=== PATIENT | female | born 1940 | race Caucasian/White ===

== ENCOUNTER 2018-07-09 13:39 | Emergency (ER) | payer OTHER ==
[2018-07-09] MEDS ORDERED: Zanaflex 4 MG PO STA (14:06)
[2018-07-09] MEDS ORDERED: TORAdol 30 mg Injection IM ONE (14:06)
[2018-07-09 14:12] VITALS: BP 164/84; O2SAT 98
[2018-07-09] MEDS ORDERED: TORAdol 30 mg Injection ONE (14:15)
--- NOTE | 2018-07-09 15:16 | ERPHSYRPT ---
- History of Present Illness Source: patient Exam Limitations: no limitations Patient Subjective Stated Complaint: woke up with sharp pain that goes down buttocks. hx sciatica. denies injury Triage Nursing Assessment: alert and with c/o pain to right buttocks and back.. no known injury. states pain when lifting leg and placing foot to walk. no increase in pain with standing. + pedal puses bilaterally. Physician History: Pt complains of R sided lower back pain. Pt states, the pain started in the AM , when she woke up, and is not radiating down her leg, but is stable in the R lower back. Pt states, hard for her to ambulate, and cross her legs. Pt took Ibuprofen in the AM, but that did not give her any relief. Timing/Duration: today Method of Injury: other (woke up with the pain) Quality: sharp, stabbing Back Pain Location: lumbar spine, paraspinous muscles Severity of Pain-Max: moderate Severity of Pain-Current: mild Modifying Factors: Improves With: pain medication, rest Associated Symptoms: denies symptoms Allergies/Adverse Reactions: No Known Drug Allergies Allergy (Verified 07/09/18 14:13) Immunizations Up to Date: Yes - Review of Systems Constitutional: No Fever, No Chills Respiratory: No Cough, No Dyspnea Cardiac: No Chest Pain, No Edema, No Syncope Abdominal/Gastrointestinal: No Abdominal Pain, No Nausea, No Vomiting, No Diarrhea Genitourinary Symptoms: No Dysuria Musculoskeletal: Back Pain Skin: No Rash Neurological: No Dizziness, No Focal Weakness, No Sensory Changes - Past Medical History Pertinent Past Medical History: Yes Cardiac History: Hypertension - Past Surgical History Past Surgical History: No - Social History Smoking Status: Never smoker Exposure to second hand smoke: No Drug Use: none Patient Lives Alone: No - Female History Hx Now: No - Nursing Vital Signs Nursing Vital Signs: Initial Vital Signs Temperature 98 F 07/09/18 13:39 Pulse Rate 76 07/09/18 13:39 Respiratory Rate 20 07/09/18 13:39 Blood Pressure 164/84 07/09/18 13:39 O2 Sat by Pulse Oximetry 98 07/09/18 13:39 Pain Scale Pain Intensity 10 - Physical Exam General Appearance: no apparent distress, alert Eye Exam: PERRL/EOMI, eyes nml inspection Neck Exam: normal inspection, non-tender, supple, full range of motion, No meningismus, No midline tenderness Respiratory Exam: normal breath sounds, lungs clear, No respiratory distress Cardiovascular Exam: regular rate/rhythm, normal heart sounds Gastrointestinal Exam: soft, No tenderness, No mass Back Exam: decreased range of motion, muscle spasm, point tenderness (Right SI joint tenderness) Extremity Exam: normal inspection, normal range of motion, No calf tenderness, No pedal edema Neurologic Exam: alert, oriented x 3, cooperative, sports official II-XII nml as tested, normal mood/affect, nml station & gait, sensation nml, No motor deficits SpO2: 98 - Course Nursing assessment & vital signs reviewed: Yes Ordered Tests: Medication Summary Discontinued Medications Generic Name Dose Route Start Last Admin Trade Name Freq PRN Reason Stop Dose Admin Ketorolac Tromethamine 60 mg 07/09/18 14:06 07/09/18 14:29 Toradol 30 Mg Injection IM 07/09/18 14:07 60 mg STAT ONE Administration Ketorolac Tromethamine Confirm 07/09/18 14:15 Toradol 30 Mg Injection Administered 07/09/18 14:16 Dose 60 mg .ROUTE .STK-MED ONE Tizanidine HCl 8 mg 07/09/18 14:06 07/09/18 14:30 Zanaflex 4 Mg PO 07/09/18 14:07 8 mg ONCE STA Administration - Progress Progress Note: 07/09/18 15:16 Pt was checked and examined. Toradol 60mg IM and Zanaflex 8mg PO were given. - Departure Departure Disposition: Home Clinical Impression: Piriformis syndrome Condition: Stable Critical Care Time: No Referrals: SRI TORRE [Primary Care Provider] - Additional Instructions: Take meds on a PRN basis. Make sure to drink plenty of fluids. Do not drive while taking the muscle relaxant. Heating pad will help. F/U with PCP this week. Prescriptions: Ibuprofen 800 mg PO Q8H PRN PRN #20 tablet PRN Reason: Muscle Spasms Tizanidine HCl 4 mg [Zanaflex 4 MG] 4 mg PO Q8H PRN PRN 5 Days #15 tablet PRN Reason: Muscle Spasms
[2018-07-09 15:39] VITALS: PULSE 82
== END 2018-07-09 15:38 | disposition home or self-care (01) ==
LOC: ED 13:39
DX: G57.00 Lesion of sciatic nerve, unspecified lower limb (principal); R42 Dizziness and giddiness
CPT/HCPCS: 96372; 99284; J1885; A9270-GY

== ENCOUNTER 2018-07-10 12:29 | Inpatient (IN) | payer OTHER ==
[2018-07-10 13:03] LABS: BASOPHIL % 0.4 % (0.0-0.4); Basophil (Absolute #) 0.04 (0-0.4); Eosinophil % 5.4 % (0.00-5.0); Granulocyte Absolute (ANC) 6.05 (1.4-6.9); Hematocrit 39.2 % (35-47); Hemoglobin 12.5 gm/dl (12.0-16.0); Lymphocytes % 23.6 % (24.0-44.0); Mean Cell Volume 90.5 fl (78-100); Mean Corpuscular Hemoglobin 28.9 pg (26-32); Mean Corpuscular Hgb Concent. 31.9 g/dl (32-36); Mean Platelet Volume 11.1 fl (6-9.5); Monocyte (Absolute #) 0.52 (0.0-1.3); Monocytes % 5.6 % (0.0-12.0); Platelet Count 214 K/mm3 (150-450); Red Blood Count 4.33 M/mm3 (4.1-5.4); Red Cell Distribution Width 14.1 % (11.5-14.0); White Blood Count 9.3 K/mm3 (4.0-10.5)
[2018-07-10 13:18] LABS: ALBUMIN 3.4 g/dL (3.5-5.0); ALKALINE PHOSPHATASE 126 U/L (38-126); ANION GAP 10.2 MEQ/L (5-15); BLOOD UREA NITROGEN 16 mg/dL (7-17); CHLORIDE 105 mmol/L (98-107); Calcium 8.9 mg/dL (8.4-10.2); Carbon Dioxide 26 mmol/L (22-30); Creatinine 1 0.65 mg/dL (0.52-1.04); Glucose 96 mg/dL (74-106); Potassium 3.9 mmol/L (3.5-5.1); SGOT/AST 22 U/L (14-36); SGPT/ALT 15 U/L (0-35); SODIUM 137 mmol/L (137-145); Total Protein 6.9 g/dL (6.3-8.2)
[2018-07-10] MEDS ORDERED: MORPHINE SULFATE 2 MG INJ IV ONE (14:23)
[2018-07-10] MEDS ORDERED: MORPHINE SULFATE 2 MG INJ ONE (14:29)
--- NOTE | 2018-07-10 14:32 | XRAY ---
Indication: Right-sided back/hip pain. Multiple contiguous axial images obtained through the abdomen and pelvis using 80 cc Isovue 370 contrast only. Comparison: February 03, 2007. Lung bases again demonstrates minimal right base atelectasis/scarring. No infiltrate or effusion. Heart is not enlarged. Again previous gastric bypass surgery. Noncontrasted stomach and bowel loops appear nonobstructed. Normal appendix. There is again mild diffuse scattered colonic fecal debris throughout. Again cholecystectomy with interval hysterectomy. No free fluid/air. Again incidental hepatic/splenic calcified granulomas. Remaining liver, pancreas, spleen, adrenal glands, kidneys, ureters, and bladder appear unremarkable. Aorta is normal in course and caliber with minimal calcifications. No pathologic retroperitoneal lymphadenopathy. Osseous structures again demonstrates mild double curvature scoliosis and moderate/advanced multilevel thoracolumbar degenerative spondylosis including minimal grade 1 L3 spondylolisthesis. No ventral or inguinal hernias. Impression: 1. Again diffuse fecal stasis without obstruction and evidence for old granulomatous disease. 2. Stable scoliosis and multilevel degenerative spondylosis including grade 1 L4 spondylolisthesis. 3. Remaining CT abdomen/pelvis with contrast exam is negative. CT DI 23.60
[2018-07-10 14:54] LABS: Appearance CLEAR (CLEAR); Bilirubin NEGATIVE (NEGATIVE); Blood NEGATIVE Ery/ul (0-5); Epithelial Cells RARE /HPF (FEW); Glucose NEGATIVE (NEGATIVE); Ketones NEGATIVE (NEGATIVE); Leukocyte Esterase TRACE (NEGATIVE); Mucus SLIGHT /HPF (NEGATIVE); Nitrite NEGATIVE (NEGATIVE); Protein,Urine Dip NEGATIVE (Negative); Specific Gravity 1.044 (1.005-1.025); Urobilinogen 4 mg/dL (0-1); WBC 0-2 /HPF (0-5)
--- NOTE | 2018-07-10 15:49 | ERPHSYRPT ---
- History of Present Illness Source: patient Exam Limitations: no limitations Patient Subjective Stated Complaint: STATES HAS HAD RIGHT HIP PAIN SINCE TUESDAY. WAS SEEN YESTERDAY IN ER AND GIVEN TORADOL AND XANAFLEX. STATES TOOK PAIN MEDS AT HOME AND IS NOT GETTING ANY BETTER. IS SUPPOSED TO SEE FAMILY MD TOMORROW. Triage Nursing Assessment: TO ROOM PER W/C. SKIN W/D, COLOR NORMAL. RESP EASY. PATIENT UNABLE TO BEAR WEIGHT ON RIGHT LEG DUE TO PAIN. PATIENT ASSISTED TO COT. RIGHT LEG WARM, NORMAL COLOR AND GOOD PEDAL PULSE. Physician History: Pt is a 78 y/o female that came to the ER yesterday for SI joint pain on the R. She had XR that did not show any pathology and was given Toradol and Zanaflex. Pt then wanted to be d/c to home, and left. Today pt came to the ER with complains of severe pain in same hip area, and she is not able to ambulate , or put any weight on the R LE. Pt denies injury or fall. Timing/Duration: day(s) Occured at: home Context: unknown Quality: aching, stabbing Hip Pain Location: hip (R) Severity of Pain-Max: severe Severity of Pain-Current: moderate Modifying Factors: Improves With: pain medication Symptoms prior to fall: none Associated Symptoms: denies symptoms Allergies/Adverse Reactions: meperidine [From Demerol] Allergy (Verified 07/10/18 13:11) Home Medications: Acetaminophen [Tylenol 8 Hour] 650 mg PO QID 07/10/18 [History] Albuterol Sulfate [Proair Hfa] 8.5 gm IH DAILY 07/10/18 [History] Aspirin [[place] Aspirin EC] 81 mg PO DAILY 07/10/18 [History] Budesonide/Formoterol Fumarate [Symbicort 160-4.5 Mcg Inhaler] 2 ea IH DAILY [History] Calcium Carbonate/Vitamin D3 [Calcium 500 mg-Vit D3 600 Unit] 1 each PO UD 07/10 [History] Duloxetine HCl 60 mg PO DAILY 07/10/18 [History] Furosemide 40 mg [Lasix 40 MG] 40 mg PO DAILY 07/10/18 [History] Glucosamine/Chondro [place] A/C/Mn [Glucosamine-Chondroitin Cap] 2 ea PO DAILY [History] Losartan Potassium 25 mg PO DAILY 07/10/18 [History] Magnesium Oxide 400 mg PO BID 07/10/18 [History] Omeprazole 20 mg PO DAILY 07/10/18 [History] Potassium Chloride [Klor-Con M20] 40 meq PO DAILY 07/10/18 [History] Ropinirole HCl 1 mg PO DAILY 07/10/18 [History] Hx Tetanus, Diphtheria Vaccination/Date Given: Yes Hx Influenza Vaccination/Date Given: Yes Hx Pneumococcal Vaccination/Date Given: Yes - Review of Systems Constitutional: No Fever, No Chills Eyes: No Symptoms Ears, Nose, & Throat: No Symptoms Respiratory: No Cough, No Dyspnea Cardiac: No Chest Pain, No Edema, No Syncope Abdominal/Gastrointestinal: No Abdominal Pain, No Nausea, No Vomiting, No Diarrhea Genitourinary Symptoms: No Dysuria Musculoskeletal: Arthralgias (SI joint on the R), Back Pain Neurological: No Dizziness, No Focal Weakness, No Sensory Changes - Past Medical History Pertinent Past Medical History: Yes Cardiac History: Hypertension - Past Surgical History Past Surgical History: No - Social History Smoking Status: Never smoker Exposure to second hand smoke: No Drug Use: none Patient Lives Alone: No - Female History Hx Now: No - Nursing Vital Signs Nursing Vital Signs: Initial Vital Signs Temperature 97.7 F 07/10/18 12:33 Pulse Rate 73 07/10/18 12:33 Respiratory Rate 16 07/10/18 12:33 Blood Pressure 164/70 07/10/18 12:33 O2 Sat by Pulse Oximetry 98 07/10/18 12:33 Pain Scale Pain Intensity [Right Hip] 5 Pain Intensity 5 - Physical Exam General Appearance: no apparent distress, alert Eye Exam: PERRL/EOMI Ears, Nose, Throat Exam: normal ENT inspection, moist mucous membranes Neck Exam: normal inspection, non-tender, supple Respiratory Exam: normal breath sounds, lungs clear, No chest tenderness, No respiratory distress Cardiovascular Exam: regular rate/rhythm, No edema Gastrointestinal Exam: soft, No tenderness, No distention, No guarding Back Exam: other (pain on the lower back on R) Extremity Exam: limited range of motion, other (Pain with movement on R LE.) Neurologic Exam: alert, oriented x 3, cooperative, pole lift operator II-XII nml as tested, sensation nml, No motor deficits SpO2: 100 - Course Nursing assessment & vital signs reviewed: Yes - CT Exams Abdomen/Pelvis CT Interpretation: Tele-radiologist Report (Stable scoliosis, multilevel degenerative spondylosis including grade 1 L4 spondolithesis.) Ordered Tests: Active Orders 24 hr Category Date Time Status ABDOMEN AND PELVIS W CONTRAST [CT] Stat Exams 07/10/18 12:46 Completed CBC W DIFF Stat Lab 07/10/18 13:02 Completed CMP Stat Lab 07/10/18 13:02 Completed Urinalysis with Microscopy Stat Lab 07/10/18 14:38 Completed Medication Summary Discontinued Medications Generic Name Dose Route Start Last Admin Trade Name Freq PRN Reason Stop Dose Admin Morphine Sulfate 2 mg 07/10/18 14:23 07/10/18 14:36 Morphine Sulfate 2 Mg Inj IV 07/10/18 14:24 2 mg STAT ONE Administration Morphine Sulfate Confirm 07/10/18 14:29 Morphine Sulfate 2 Mg Inj Administered 07/10/18 14:30 Dose 2 mg .ROUTE .[place]-MED ONE Lab/Rad Data: Laboratory Result Diagrams 07/10/18 13:02 07/10/18 13:02 Laboratory Results 07/10/18 07/10/18 07/10/18 Range/Units 14:38 13:02 13:02 WBC 9.3 (4.0-10.5) K/mm3 RBC 4.33 (4.1-5.4) M/mm3 Hgb 12.5 (12.0-16.0) gm/dl Hct 39.2 (35-47) % MCV 90.5 (78-100) fl MCH 28.9 (26-32) pg MCHC 31.9 L (32-36) g/dl RDW 14.1 H (11.5-14.0) % Plt Count 214 (150-450) K/mm3 MPV 11.1 H (6-9.5) fl Gran % 65.0 (36.0-66.0) % Eos # (Auto) 0.50 (0-0.5) Absolute Lymphs (auto) 2.20 (1.0-4.6) Absolute Monos (auto) 0.52 (0.0-1.3) Lymphocytes % 23.6 L (24.0-44.0) % Monocytes % 5.6 (0.0-12.0) % Eosinophils % 5.4 H (0.00-5.0) % Basophils % 0.4 (0.0-0.4) % Absolute Granulocytes 6.05 (1.4-6.9) Basophils # 0.04 (0-0.4) Sodium 137 (137-145) mmol/L Potassium 3.9 (3.5-5.1) mmol/L Chloride 105 (98-107) mmol/L Carbon Dioxide 26 (22-30) mmol/L Anion Gap 10.2 (5-15) MEQ/L BUN 16 (7-17) mg/dL Creatinine 0.65 (0.52-1.04) mg/dL Estimated GFR > 60.0 ML/MIN Glucose 96 (74-106) mg/dL Calcium 8.9 (8.4-10.2) mg/dL Total Bilirubin 0.80 (0.2-1.3) mg/dL AST 22 (14-36) U/L ALT 15 (0-35) U/L Alkaline Phosphatase 126 (38-126) U/L Serum Total Protein 6.9 (6.3-8.2) g/dL Albumin 3.4 L (3.5-5.0) g/dL Urine Color YELLOW (YELLOW) Urine Appearance CLEAR (CLEAR) Urine pH 6.0 (5-6) Ur Specific [place] 1.044 (1.005-1.025) Urine Protein NEGATIVE (Negative) Urine Ketones NEGATIVE (NEGATIVE) Urine Blood NEGATIVE (0-5) Jeff/ul Urine Nitrite NEGATIVE (NEGATIVE) Urine Bilirubin NEGATIVE (NEGATIVE) Urine Urobilinogen 4 (0-1) mg/dL Ur Leukocyte Esterase TRACE (NEGATIVE) Urine WBC (Auto) 0-2 (0-5) /HPF Urine RBC (Auto) 3-5 (0-2) /HPF U Epithel Cells (Auto) RARE (FEW) /HPF Urine Bacteria (Auto) NONE (NEGATIVE) /HPF Urine Mucus (Auto) SLIGHT (NEGATIVE) /HPF Urine Glucose NEGATIVE (NEGATIVE) mg/dL - Progress Progress: unchanged Progress Note: Pt was seen and examined. Lab work is negative. CT shows degenerative sponylosis and scoliosis. Per family's request Dr Perkins was contacted, and pt was accepted to observation for pain control. 07/10/18 15:49 Will see patient in: hospital (observation) - Departure Departure Disposition: Observation Clinical Impression: Lower back pain Condition: Stable Critical Care Time: No Referrals: SRI TORRE [Primary Care Provider] - Additional Instructions: Sabiha will be placed in observation. Dr Perkins is accepting.
[2018-07-10] MEDS ORDERED: MORPHINE SULFATE 2 MG INJ IV PRN (15:51)
--- NOTE | 2018-07-10 17:32 | PCM.HP ---
History of Present Illness - Chief Complaint Chief Complaint: lower back pain. History of Present Illness: is a 78 year old female pt of mine from [facility] with pmhx of anemia, neuropathy, and overweight, with probable COPD, who came to ER c/o back pain. Pain is in the R lower back (approx L4-L5) and radiates down the R leg; down L leg at times. Pain started 4-5 d ago with no trauma noted. She came to ER yesterday and was given tizanidine 4mg and ibuprofen 800mg - she took the tizanidine x1 without relief. Then today she was still having pain, not able to get out of bed and walk by herself at home due to pain, and came back to the ER. She was given 2mg morphine IV without relief. Dr. Kuhn was ready to d /c the pt to home but her mobility is still very limited to pain. Pt states right now lying in bed pain is 0/10, but when she gets up it is 10/ 10. She has trouble moving the R leg to walk. Denies paresthesias. No urinary retention and no loss of bowel control. - Review of Systems Genitourinary Symptoms: No Urinary Retention Musculoskeletal: Back Pain Psychological: No Anxiety, No Depression, No Suicidal Ideations Medications & Allergies Home Medications: Home Medication List Ibuprofen 800 mg PO Q8H PRN PRN #20 tablet 07/09/18 [Rx Confirmed 07/10/18] Tizanidine HCl 4 mg [Zanaflex 4 MG] 4 mg PO Q8H PRN PRN 5 Days #15 tablet [Rx Confirmed 07/10/18] Acetaminophen [Tylenol 8 Hour] 650 mg PO QID 07/10/18 [History Confirmed ] Albuterol Sulfate [Proair Hfa] 8.5 gm IH DAILY 07/10/18 [History Confirmed 07/10] Aspirin [[place] Aspirin EC] 81 mg PO DAILY 07/10/18 [History Confirmed 07/10] Budesonide/Formoterol Fumarate [Symbicort 160-4.5 Mcg Inhaler] 2 ea IH DAILY [History Confirmed 07/10/18] Calcium Carbonate/Vitamin D3 [Calcium 500 mg-Vit D3 600 Unit] 1 each PO UD 07/10 [History Confirmed 07/10/18] Duloxetine HCl 60 mg PO DAILY 07/10/18 [History Confirmed 07/10/18] Furosemide 40 mg [Lasix 40 MG] 40 mg PO DAILY 07/10/18 [History Confirmed 07/10/18] Glucosamine/Chondro [place] A/C/Mn [Glucosamine-Chondroitin Cap] 2 ea PO DAILY [History Confirmed 07/10/18] Losartan Potassium 25 mg PO DAILY 07/10/18 [History Confirmed 07/10/18] Magnesium Oxide 400 mg PO BID 07/10/18 [History Confirmed 07/10/18] Omeprazole 20 mg PO DAILY 07/10/18 [History Confirmed 07/10/18] Potassium Chloride [Klor-Con M20] 40 meq PO DAILY 07/10/18 [History Confirmed ] Ropinirole HCl 1 mg PO DAILY 07/10/18 [History Confirmed 07/10/18] Allergies/Adverse Reactions: Allergies Allergy/AdvReac Type Severity Reaction Status Date / Time meperidine [From Demerol] Allergy Verified 07/10/18 13:11 - Past Medical History Past Medical History: Yes Neurological History: No Pertinent History ENT History: Cataracts, Glaucoma Cardiac History: Hypertension Respiratory History: No Pertinent History Endocrine Medical History: No Pertinent History Musculoskelatal History: Arthritis, Other GI Medical History: No Pertinent History History: No Pertinent History Pyscho-Social History: No Pertinent History Reproductive Disorders: No Pertinent History - Female History Are you now?: No - Past Surgical History Past Surgical History: Yes Neuro Surgical History: No Pertinent History Cardiac History: Angioplasty GI Surgical History: Other Genitourinary Surgical Hx: No Pertinent History Musculskeletal Surgical Hx: No Pertinent History Female Surgical History: No Pertinent History Other Surgical History: "tummuy tuck". - Social History Smoking Status: Former smoker Exposure to second hand smoke: Yes Alcohol: None Drug Use: none - Physical Exam Vital Signs: Vital Signs - 24 hr Temp Pulse Resp BP Pulse Ox 07/10/18 16:49 98.3 F 77 20 125/67 100 07/10/18 15:51 100 07/10/18 14:41 73 16 143/61 100 07/10/18 12:33 97.7 F 73 16 164/70 98 General Appearance: no apparent distress, alert Neurologic Exam: oriented x 3, cooperative Eye Exam: eyes nml inspection Ears, Nose, Throat Exam: moist mucous membranes Neck Exam: normal inspection Respiratory Exam: normal breath sounds, lungs clear, No crackles/rales, No rhonchi, No wheezing Cardiovascular Exam: regular rate/rhythm, normal heart sounds, No murmur Gastrointestinal/Abdomen Exam: soft, normal bowel sounds, No tenderness, No distention, No mass, No guarding, No rebound Back Exam: normal inspection, other (TTP R lumbar paraspinal muscles approx L4- L5. no lesions, no erythema/crepitus), No rash Skin Exam: normal color, warm, dry, No rash Results - Labs Lab/Micro Results: Lab Results-Last 24 Hours 07/10/18 07/10/18 07/10/18 Range/Units 13:02 13:02 14:38 WBC 9.3 (4.0-10.5) K/mm3 RBC 4.33 (4.1-5.4) M/mm3 Hgb 12.5 (12.0-16.0) gm/dl Hct 39.2 (35-47) % MCV 90.5 (78-100) fl MCH 28.9 (26-32) pg MCHC 31.9 L (32-36) g/dl RDW 14.1 H (11.5-14.0) % Plt Count 214 (150-450) K/mm3 MPV 11.1 H (6-9.5) fl Gran % 65.0 (36.0-66.0) % Eos # (Auto) 0.50 (0-0.5) Absolute Lymphs (auto) 2.20 (1.0-4.6) Absolute Monos (auto) 0.52 (0.0-1.3) Lymphocytes % 23.6 L (24.0-44.0) % Monocytes % 5.6 (0.0-12.0) % Eosinophils % 5.4 H (0.00-5.0) % Basophils % 0.4 (0.0-0.4) % Absolute Granulocytes 6.05 (1.4-6.9) Basophils # 0.04 (0-0.4) Sodium 137 (137-145) mmol/L Potassium 3.9 (3.5-5.1) mmol/L Chloride 105 (98-107) mmol/L Carbon Dioxide 26 (22-30) mmol/L Anion Gap 10.2 (5-15) MEQ/L BUN 16 (7-17) mg/dL Creatinine 0.65 (0.52-1.04) mg/dL Estimated GFR > 60.0 ML/MIN Glucose 96 (74-106) mg/dL Calcium 8.9 (8.4-10.2) mg/dL Total Bilirubin 0.80 (0.2-1.3) mg/dL AST 22 (14-36) U/L ALT 15 (0-35) U/L Alkaline Phosphatase 126 (38-126) U/L Serum Total Protein 6.9 (6.3-8.2) g/dL Albumin 3.4 L (3.5-5.0) g/dL Urine Color YELLOW (YELLOW) Urine Appearance CLEAR (CLEAR) Urine pH 6.0 (5-6) Ur Specific [place] 1.044 (1.005-1.025) Urine Protein NEGATIVE (Negative) Urine Ketones NEGATIVE (NEGATIVE) Urine Blood NEGATIVE (0-5) Jeff/ul Urine Nitrite NEGATIVE (NEGATIVE) Urine Bilirubin NEGATIVE (NEGATIVE) Urine Urobilinogen 4 (0-1) mg/dL Ur Leukocyte Esterase TRACE (NEGATIVE) Urine WBC (Auto) 0-2 (0-5) /HPF Urine RBC (Auto) 3-5 (0-2) /HPF U Epithel Cells (Auto) RARE (FEW) /HPF Urine Bacteria (Auto) NONE (NEGATIVE) /HPF Urine Mucus (Auto) SLIGHT (NEGATIVE) /HPF Urine Glucose NEGATIVE (NEGATIVE) mg/dL - Radiology Impressions Radiology Exams & Impressions: Radiology Procedures Category Date Time Status ABDOMEN AND PELVIS W CONTRAST [CT] Stat Exams 07/10/18 12:46 Completed Assessment/Plan (1) Lower back pain Current Visit: Yes Status: Acute Qualifiers: Chronicity: acute Back pain laterality: right Sciatica presence: with sciatica Sciatica laterality: sciatica of right side Qualified Code(s): M54.41 - Lumbago with sciatica, right side Assessment & Plan: Will order MRI. Try morphine and percocet for pain control. Scheduled baclofen and mobic. PT consulted. Code(s): M54.5 - LOW BACK PAIN
[2018-07-10] MEDS: ENOXAPARIN SODIUM SQ SCH (17:37)
[2018-07-10] MEDS: PERCOCET TABLET 5/325MG PO PRN ×2 (18:18→22:56)
[2018-07-10] MEDS ORDERED: ECOTRIN 81 MG PO SCH ×2 (22:00)
[2018-07-10] MEDS ORDERED: REQUIP 2MG TAB PO SCH (22:00)
[2018-07-10] MEDS ORDERED: Requip 0.5 MG ONE (22:29)
[2018-07-10] MEDS: MAG-OX 400 PO SCH (22:56)
[2018-07-10] MEDS: Mobic 7.5 MG PO SCH (22:57)
[2018-07-10] MEDS: LIORESAL 10 MG PO SCH (22:57)
[2018-07-11] MEDS: PERCOCET TABLET 5/325MG PO PRN ×3 (04:14→22:04)
[2018-07-11 06:12] LABS: BASOPHIL % 0.4 % (0.0-0.4); Basophil (Absolute #) 0.03 (0-0.4); Eosinophil (Absolute #) 0.49 (0-0.5); Granulocytes % 59.7 % (36.0-66.0); Hematocrit 37.5 % (35-47); Hemoglobin 11.7 gm/dl (12.0-16.0); Lymphocyte (Absolute #) 1.84 (1.0-4.6); Lymphocytes % 26.2 % (24.0-44.0); Mean Cell Volume 90.4 fl (78-100); Mean Corpuscular Hgb Concent. 31.2 g/dl (32-36); Mean Platelet Volume 10.9 fl (6-9.5); Monocyte (Absolute #) 0.47 (0.0-1.3); Monocytes % 6.7 % (0.0-12.0); Platelet Count 203 K/mm3 (150-450); Red Blood Count 4.15 M/mm3 (4.1-5.4); Red Cell Distribution Width 14.1 % (11.5-14.0)
[2018-07-11 06:18] LABS: ANION GAP 11.5 MEQ/L (5-15); BLOOD UREA NITROGEN 13 mg/dL (7-17); CHLORIDE 106 mmol/L (98-107); Calcium 8.8 mg/dL (8.4-10.2); Carbon Dioxide 24 mmol/L (22-30); Creatinine 1 0.59 mg/dL (0.52-1.04); Glucose 96 mg/dL (74-106); Potassium 3.8 mmol/L (3.5-5.1); SODIUM 138 mmol/L (137-145)
[2018-07-11 06:28] LABS: Mean Corpuscular Hemoglobin 28.1 pg (26-32)
[2018-07-11] MEDS ORDERED: Zanaflex 4 MG PO PRN (07:38)
[2018-07-11] MEDS ORDERED: CALCIUM CARBONATE PO SCH (07:45)
[2018-07-11] MEDS ORDERED: VITAMIN D3 PO SCH (07:45)
[2018-07-11] MEDS ORDERED: [UNRECOGNIZED DRUG - OTHER] PO SCH (07:45)
[2018-07-11] MEDS ORDERED: Ventolin Hfa MDI IH SCH (07:45)
[2018-07-11] MEDS ORDERED: PROVENTIL COMMON CANISTER IH PRN (07:52)
--- NOTE | 2018-07-11 08:34 | PCM.NOTE ---
Date and Time: 07/11/18829 Subjective Assessment: Pt slept well last nigth. Still c/o R lower back pain. Eileen po. - Review of Systems Constitutional: No Fever Respiratory: No Cough Objective Exam General Appearance: no apparent distress, alert Neurologic Exam: oriented x 3, cooperative Skin Exam: normal color, warm, dry, No rash Respiratory Exam: normal breath sounds, lungs clear, No crackles/rales, No rhonchi, No wheezing Cardiovascular Exam: regular rate/rhythm, normal heart sounds, No murmur Gastrointestinal/Abdomen Exam: soft, normal bowel sounds, No tenderness Extremity Exam: normal inspection, No pedal edema, No swelling Back Exam: normal inspection, No rash OBJECTIVE DATA Vital Signs: Vital Signs - 24 hr Temp Pulse Resp BP Pulse Ox 07/11/18 07:43 98 F 76 20 140/66 92 L 07/11/18 04:32 97.7 F 82 20 147/65 91 L 07/11/18 01:01 98.3 F 79 20 141/64 92 L 07/10/18 20:00 98.1 F 78 20 117/56 94 L 07/10/18 16:49 98.3 F 77 20 125/67 100 07/10/18 15:51 100 07/10/18 14:41 73 16 143/61 100 07/10/18 12:33 97.7 F 73 16 164/70 98 Pain Assessment - Last Documented Pain Intensity [Right Hip] 5 Pain Intensity 0 Pain Scale Used 0-10 Pain Scale Intake and Output: Intake & Output 07/08/18 07/09/18 07/10/18 07/11/18 11:59 11:59 11:59 11:59 Intake Total 770 Output Total 1300 Balance -530 Weight 117.5 kg Lab Results: Lab Results-Last 24 Hours 07/10/18 07/10/18 07/10/18 Range/Units 13:02 13:02 14:38 WBC 9.3 (4.0-10.5) K/mm3 RBC 4.33 (4.1-5.4) M/mm3 Hgb 12.5 (12.0-16.0) gm/dl Hct 39.2 (35-47) % MCV 90.5 (78-100) fl MCH 28.9 (26-32) pg MCHC 31.9 L (32-36) g/dl RDW 14.1 H (11.5-14.0) % Plt Count 214 (150-450) K/mm3 MPV 11.1 H (6-9.5) fl Gran % 65.0 (36.0-66.0) % Eos # (Auto) 0.50 (0-0.5) Absolute Lymphs (auto) 2.20 (1.0-4.6) Absolute Monos (auto) 0.52 (0.0-1.3) Lymphocytes % 23.6 L (24.0-44.0) % Monocytes % 5.6 (0.0-12.0) % Eosinophils % 5.4 H (0.00-5.0) % Basophils % 0.4 (0.0-0.4) % Absolute Granulocytes 6.05 (1.4-6.9) Basophils # 0.04 (0-0.4) Sodium 137 (137-145) mmol/L Potassium 3.9 (3.5-5.1) mmol/L Chloride 105 (98-107) mmol/L Carbon Dioxide 26 (22-30) mmol/L Anion Gap 10.2 (5-15) MEQ/L BUN 16 (7-17) mg/dL Creatinine 0.65 (0.52-1.04) mg/dL Estimated GFR > 60.0 ML/MIN Glucose 96 (74-106) mg/dL Calcium 8.9 (8.4-10.2) mg/dL Total Bilirubin 0.80 (0.2-1.3) mg/dL AST 22 (14-36) U/L ALT 15 (0-35) U/L Alkaline Phosphatase 126 (38-126) U/L Serum Total Protein 6.9 (6.3-8.2) g/dL Albumin 3.4 L (3.5-5.0) g/dL Urine Color YELLOW (YELLOW) Urine Appearance CLEAR (CLEAR) Urine pH 6.0 (5-6) Ur Specific Eagle 1.044 (1.005-1.025) Urine Protein NEGATIVE (Negative) Urine Ketones NEGATIVE (NEGATIVE) Urine Blood NEGATIVE (0-5) Jeff/ul Urine Nitrite NEGATIVE (NEGATIVE) Urine Bilirubin NEGATIVE (NEGATIVE) Urine Urobilinogen 4 (0-1) mg/dL Ur Leukocyte Esterase TRACE (NEGATIVE) Urine WBC (Auto) 0-2 (0-5) /HPF Urine RBC (Auto) 3-5 (0-2) /HPF U Epithel Cells (Auto) RARE (FEW) /HPF Urine Bacteria (Auto) NONE (NEGATIVE) /HPF Urine Mucus (Auto) SLIGHT (NEGATIVE) /HPF Urine Glucose NEGATIVE (NEGATIVE) mg/dL 07/11/18 07/11/18 Range/Units 05:30 05:30 WBC 7.0 (4.0-10.5) K/mm3 RBC 4.15 (4.1-5.4) M/mm3 Hgb 11.7 L (12.0-16.0) gm/dl Hct 37.5 (35-47) % MCV 90.4 (78-100) fl MCH 28.1 (26-32) pg MCHC 31.2 L (32-36) g/dl RDW 14.1 H (11.5-14.0) % Plt Count 203 (150-450) K/mm3 MPV 10.9 H (6-9.5) fl Gran % 59.7 (36.0-66.0) % Eos # (Auto) 0.49 (0-0.5) Absolute Lymphs (auto) 1.84 (1.0-4.6) Absolute Monos (auto) 0.47 (0.0-1.3) Lymphocytes % 26.2 (24.0-44.0) % Monocytes % 6.7 (0.0-12.0) % Eosinophils % 7.0 H (0.00-5.0) % Basophils % 0.4 (0.0-0.4) % Absolute Granulocytes 4.20 (1.4-6.9) Basophils # 0.03 (0-0.4) Sodium 138 (137-145) mmol/L Potassium 3.8 (3.5-5.1) mmol/L Chloride 106 (98-107) mmol/L Carbon Dioxide 24 (22-30) mmol/L Anion Gap 11.5 (5-15) MEQ/L BUN 13 (7-17) mg/dL Creatinine 0.59 (0.52-1.04) mg/dL Estimated GFR > 60.0 ML/MIN Glucose 96 (74-106) mg/dL Calcium 8.8 (8.4-10.2) mg/dL Total Bilirubin (0.2-1.3) mg/dL AST (14-36) U/L ALT (0-35) U/L Alkaline Phosphatase (38-126) U/L Serum Total Protein (6.3-8.2) g/dL Albumin (3.5-5.0) g/dL Urine Color (YELLOW) Urine Appearance (CLEAR) Urine pH (5-6) Ur Specific Eagle (1.005-1.025) Urine Protein (Negative) Urine Ketones (NEGATIVE) Urine Blood (0-5) Jeff/ul Urine Nitrite (NEGATIVE) Urine Bilirubin (NEGATIVE) Urine Urobilinogen (0-1) mg/dL Ur Leukocyte Esterase (NEGATIVE) Urine WBC (Auto) (0-5) /HPF Urine RBC (Auto) (0-2) /HPF U Epithel Cells (Auto) (FEW) /HPF Urine Bacteria (Auto) (NEGATIVE) /HPF Urine Mucus (Auto) (NEGATIVE) /HPF Urine Glucose (NEGATIVE) mg/dL Radiology Exams: Radiology Procedures Category Date Time Status ABDOMEN AND PELVIS W CONTRAST [CT] Stat Exams 07/10/18 12:46 Completed MRI L-SPINE WITHOUT CONTRAST [MRI] Routine Exams 07/11/18 10:00 Ordered Assessment/Plan (1) Lower back pain Current Visit: Yes Status: Acute Qualifiers: Chronicity: acute Back pain laterality: right Sciatica presence: with sciatica Sciatica laterality: sciatica of right side Qualified Code(s): M54.41 - Lumbago with sciatica, right side Assessment & Plan: await MRI today. Will need pain meds for MRI. If doing well with PT and po meds may be able to d/c home today. Code(s): M54.5 - LOW BACK PAIN
[2018-07-11] MEDS: Advair Hfa 230/21 Mcg COMMON CANISTER IH SCH ×2 (08:37→20:23)
[2018-07-11] MEDS: Lasix 40 MG PO SCH (08:58)
[2018-07-11] MEDS: Calcium 500MG W/Vit D Tablet PO SCH (08:58)
[2018-07-11] MEDS: LIORESAL 10 MG PO SCH ×3 (08:58→22:03)
[2018-07-11] MEDS: Protonix 40MG Tablet PO SCH (08:58)
[2018-07-11] MEDS: Cozaar 50 MG PO SCH (08:59)
[2018-07-11] MEDS: Klor Con 10 MEQ PO SCH ×2 (09:00→09:06)
[2018-07-11] MEDS: Mobic 7.5 MG PO SCH ×2 (09:00→22:04)
[2018-07-11] MEDS: MAG-OX 400 PO SCH ×2 (09:00→22:04)
[2018-07-11] MEDS: Cymbalta 30 MG Capsule PO SCH (09:00)
[2018-07-11] MEDS: ENOXAPARIN SODIUM SQ SCH (09:01)
[2018-07-11] MEDS: MORPHINE SULFATE 10 MG/ML IV PRN ×3 (09:47→19:57)
[2018-07-11] MEDS ORDERED: NON-FORMULARY ITEM (Omeprazole [Omeprazole] 20 MG) PO SCH (10:00)
[2018-07-11] MEDS ORDERED: NON-FORMULARY ITEM (Budesonide/Formoterol Fumarate [Symbicort 160-4.5 Mcg Inhaler] 2 PUFFS IH SCH (10:00)
[2018-07-11] MEDS ORDERED: POTASSIUM CHLORIDE 40 MEQ PO SCH (10:00)
--- NOTE | 2018-07-11 16:57 | XRAY ---
Indication: Low back and right hip pain. Right leg dragging with walking. No known injury. Sagittal and axial MRI lumbar spine performed without contrast using T1 and T2 weighted sequences. Comparison: None CT abdomen/pelvis 1 day earlier documents 5 lumbar vertebral segments. Sagittal MRI images demonstrates mild double curvature scoliosis and 4 mm L3 anterolisthesis on L4 Multilevel advanced degenerative disc desiccation signal with disc space narrowing greatest at the L2-L4 levels. Small bilateral S2 perineural cysts, largest on the left measuring 1 cm. No acute fracture, suspicious bony lesions, or abnormal bone marrow signal. Conus medullaris terminates at the L1 level. Axial images at the T12-L1 level demonstrates mild annular disc bulge minimally effacing the thecal sac and producing bilateral foraminal narrowing. Additional mild bilateral degenerative facet and ligamentum flavum hypertrophy further narrows the spinal canal. No disc herniation or canal stenosis. At the L1-L2 level, there is bilateral foraminal stenosis due to combination of broad-based disc bulge and moderate bilateral degenerative facet and ligamentum flavum hypertrophy. Also moderate focal central disc protrusion effaces the thecal sac. AP thecal sac diameter is 6-7 mm. At the L2-L3 level, there is bilateral foraminal narrowing, right greater than left due to broad-based disc bulge and moderate bilateral degenerative facet hypertrophy. No focal disc herniation or canal stenosis. At the L3-L4 level, there is spinal canal stenosis, right foraminal stenosis, and left foraminal narrowing due to combination of grade 1 anterolisthesis, broad-based disc bulge, and moderate/advanced bilateral degenerative facet with ligament flavum hypertrophy. Mean AP thecal sac diameter is 5-6 mm. Slight impingement of the exiting right L3 nerve root. At the L4-L5 level, there is spinal canal stenosis, left foraminal stenosis, and right foraminal narrowing due to combination of broad-based disc bulge and advanced bilateral degenerative facet/ligament flavum hypertrophy. Mean AP thecal sac diameter is 8 mm. Impingement of the exiting left L4 nerve root. At the L5-S1 level, there is bilateral foraminal stenosis with bilateral L5 nerve root impingement due to broad-based disc bulge and moderate bilateral degenerative facet hypertrophy. No disc herniation or canal stenosis. Impression: 1. Multilevel degenerative disc disease detail level by level. Greatest extent at L3-L4 level where there is spinal canal stenosis and foraminal narrowing/stenosis due to disc bulge, grade 1 anterolisthesis, and degenerative facet/ligamentum flavum hypertrophy. 2. L1-L2 central disc protrusion with subsequent canal stenosis. 3. Incidental double curvature scoliosis and bilateral S2 perineural cysts.
[2018-07-11] MEDS ORDERED: Requip 0.5 MG PO SCH (22:00)
[2018-07-11] MEDS: ECOTRIN 81 MG PO SCH (22:03)
[2018-07-11] MEDS: REQUIP 2MG TAB PO SCH (22:03)
[2018-07-12] MEDS: MORPHINE SULFATE 10 MG/ML IV PRN ×2 (00:01→04:10)
--- NOTE | 2018-07-12 08:32 | PCM.DS ---
Discharge Summary Date of Admission: 07/10/18 16:19 Admitting Physician: SRI TORRE Primary Care Provider: SRI TORRE Allergies Allergies meperidine [From Demerol] Allergy (Verified 07/10/18 13:11) Hospital Summary - Hospital Course Hospital Course: Pt is 78 yo female pt of mine from [facility] with obesity who came in complaining of several days of sudden onset R lower back pain without trauma. She came to the ER x 2 and was admitted after the second visit. Her pain has been poorly controlled; was 10/10 on admission and unable to walk by herself. She has been up with a walker here, but still alternating morphine IV and percocet 5mg po, with pain 8/10. CT spine without acute findings. MRI spine showed several levels with spinal stenosis and foraminal stenosis due to disc bulge. She has denies paresthesias in LE, urinary retention, or loss of bowel control throughout her stay. We did discuss that these, as well as paralysis, are red flags and must be reported immediately to a physician. I will contact neurosurgery today to see when they can see the pt. My goal is to stop the morphine and see if her pain is controlled on 25mcg fentanyl patch with percocet 10/325 for breakthrough pain prn. If she is controlled, may be able to d/c home later today. If any concerns about respiratory depression, will keep her through the night and continue to work on pain control. - Vitals & Intake/Output Vital Signs: Vital Signs Temperature 97.6 F 07/12/18 07:36 Pulse Rate 75 07/12/18 07:36 Respiratory Rate 20 07/12/18 07:36 Blood Pressure 150/67 07/12/18 07:36 O2 Sat by Pulse Oximetry 97 07/12/18 07:36 Intake & Output: Intake & Output 07/09/18 07/10/18 07/11/18 07/12/18 11:59 11:59 11:59 11:59 Intake Total 890 1440 Output Total 1300 1300 Balance -410 140 Weight 117.5 kg - Lab Result Diagrams: 07/11/18 05:30 07/11/18 05:30 - Radiology Exams Ordered Rad Exams-Entire Visit: Radiology Procedures Category Date Time Status ABDOMEN AND PELVIS W CONTRAST [CT] Stat Exams 07/10/18 12:46 Completed MRI L-SPINE WITHOUT CONTRAST [MRI] Routine Exams 07/11/18 10:00 Completed - Procedures and Test Procedures and Tests throughout Hospitalization: Therapy Orders & Screens 07/10/18 17:37 PT Eval & Treat (MD Order) ROUTINE Reason for Eval:: R low back pain, intractable Diagnosis: lower back pain. 07/11/18 09:07 Respiratory MDI HS Comment: Diagnosis: lower back pain. 07/11/18 09:19 Respiratory Therapy Assessment DAILY Comment: Diagnosis: lower back pain. Discharge Exam General Appearance: moderate distress (NAD at rest; wtih some distress when turning to her side), alert, obese Neurologic Exam: oriented x 3, cooperative Skin Exam: normal color, warm, dry, No rash Final Diagnosis/Problem List - Final Discharge Diagnosis/Problem (1) Spinal stenosis Current Visit: Yes Status: Acute Assessment & Plan: Will discuss with neurosurgery and see when they can see pt. Changing morphine to fentanyl patch and po percocet. May be able to d/c to home if ok with neurosurgery and if pain is better controlled and pt can ambulate. If concerns about respiratory depression or pain control, will need to keep the pt another day. Code(s): M48.00 - SPINAL STENOSIS, SITE UNSPECIFIED - Discharge Disposition: Home, Self-Care Condition: Good Prescriptions: No Action Ibuprofen 800 mg PO Q8H PRN PRN #20 tablet PRN Reason: Muscle Spasms Tizanidine HCl 4 mg [Zanaflex 4 MG] 4 mg PO Q8H PRN PRN 5 Days #15 tablet PRN Reason: Muscle Spasms Furosemide 40 mg [Lasix 40 MG] 40 mg PO DAILY Ropinirole HCl 2 tab PO HS Potassium Chloride [Klor-Con M20] 40 meq PO DAILY Omeprazole 20 mg PO DAILY Magnesium Oxide 400 mg PO BID Losartan Potassium 12.5 mg PO DAILY Glucosamine/Chondro Worley A/C/Mn [Glucosamine-Chondroitin Cap] 2 ea PO DAILY Duloxetine HCl 60 mg PO DAILY Calcium Carbonate/Vitamin D3 [Calcium 500 mg-Vit D3 600 Unit] 1 each PO UD Budesonide/Formoterol Fumarate [Symbicort 160-4.5 Mcg Inhaler] 2 ea IH DAILY Aspirin [Tower Aspirin EC] 81 mg PO HS Albuterol Sulfate [Proair Hfa] 8.5 gm IH QID PRN Acetaminophen [Tylenol 8 Hour] 650 mg PO QID Budesonide/Formoterol Fumarate [Symbicort 160-4.5 Mcg Inhaler] 2 puffs IH BID Instructions: Low Back Pain (DC) Follow up with: SRI TORRE [Primary Care Provider] - 1 Week
[2018-07-12] MEDS ORDERED: Duragesic 25MCG Patch TD SCH (09:00)
[2018-07-12] MEDS: PATIENT OWN MEDICATION IH SCH ×2 (10:35→20:20)
[2018-07-12] MEDS: Cymbalta 30 MG Capsule PO SCH (12:03)
[2018-07-12] MEDS: MAG-OX 400 PO SCH ×2 (12:03→21:24)
[2018-07-12] MEDS: Calcium 500MG W/Vit D Tablet PO SCH (12:03)
[2018-07-12] MEDS: Mobic 7.5 MG PO SCH ×2 (12:04→21:24)
[2018-07-12] MEDS: Cozaar 50 MG PO SCH (12:04)
[2018-07-12] MEDS: LIORESAL 10 MG PO SCH ×3 (12:04→21:24)
[2018-07-12] MEDS: Protonix 40MG Tablet PO SCH (12:04)
[2018-07-12] MEDS: Klor Con 10 MEQ PO SCH (12:04)
[2018-07-12] MEDS: Lasix 40 MG PO SCH (12:05)
[2018-07-12] MEDS: OXYCODONE-ACETAMINOPHEN 10-325 PO PRN ×2 (12:05→16:22)
[2018-07-12] MEDS: ENOXAPARIN SODIUM SQ SCH (12:09)
[2018-07-12] MEDS: REQUIP 2MG TAB PO SCH (21:24)
[2018-07-12] MEDS: ECOTRIN 81 MG PO SCH (21:24)
[2018-07-13] MEDS: OXYCODONE-ACETAMINOPHEN 10-325 PO PRN ×2 (06:13→12:57)
--- NOTE | 2018-07-13 08:29 | PCM.NOTE ---
Date and Time: 07/13/18826 Subjective Assessment: Last night she was very sleepy and disoriented; family requested that the fentanyl patch be discontinued and it was. She required oxygen overnight. This morning she is still sleepy; wakes to voice. She is oriented to place; however the month is "Tuesday" and the year is ".2001." She is denying any pain. - Review of Systems Constitutional: No Fever Respiratory: No Cough Objective Exam General Appearance: no apparent distress, other (somnolent but wakes to voice) Neurologic Exam: cooperative, disoriented (oriented to place) Skin Exam: normal color, warm, dry, No rash Ears, Nose, Throat Exam: moist mucous membranes Respiratory Exam: normal breath sounds, lungs clear, No crackles/rales, No rhonchi, No wheezing Cardiovascular Exam: regular rate/rhythm, normal heart sounds, No murmur Gastrointestinal/Abdomen Exam: soft, normal bowel sounds, No tenderness, No distention, No mass, No guarding, No rebound Extremity Exam: normal inspection, No pedal edema, No swelling Back Exam: normal inspection, No rash OBJECTIVE DATA Vital Signs: Vital Signs - 24 hr Temp Pulse Resp BP Pulse Ox 07/13/18 08:00 97.5 F 72 20 132/60 98 07/13/18 04:20 97.8 F 70 15 129/61 97 07/13/18 00:11 98.5 F 69 14 125/58 97 07/12/18 21:06 74 18 97 07/12/18 20:00 98.1 F 76 15 127/62 95 07/12/18 16:34 98.5 F 81 20 118/57 94 L 07/12/18 12:20 98 F 07/12/18 10:35 74 16 95 Oxygen-Last 24 hours O2 Percentage 3 Liters = 32% O2 Percentage 3 Liters = 32% O2 Percentage 3 Liters = 32% Pain Assessment - Last Documented Pain Intensity [Right Hip] 5 Pain Intensity 0 Pain Scale Used 0-10 Pain Scale Intake and Output: Intake & Output 07/10/18 07/11/18 07/12/18 07/13/18 11:59 11:59 11:59 11:59 Intake Total 890 1800 560 Output Total 1300 1300 950 Balance -410 500 -390 Weight 117.5 kg Radiology Exams: Radiology Procedures Category Date Time Status MRI L-SPINE WITHOUT CONTRAST [MRI] Routine Exams 07/11/18 10:00 Completed Assessment/Plan (1) Spinal stenosis Current Visit: Yes Status: Acute Assessment & Plan: Will re-asses pain meds/pain control when she wakes up more - may not be ready to d/c if pain not controlled. Referring her to neurosurgeon of her family's choice - Dr. Anthony Thakur in [place]. Will speak with him today. Code(s): M48.00 - SPINAL STENOSIS, SITE UNSPECIFIED (2) Altered mental status Current Visit: Yes Status: Acute Qualifiers: Altered mental status type: disorientation Qualified Code(s): R41.0 - Disorientation, unspecified Assessment & Plan: Most likely related to pain meds. Code(s): R41.82 - ALTERED MENTAL STATUS, UNSPECIFIED
[2018-07-13] MEDS: PATIENT OWN MEDICATION IH SCH ×2 (09:06→20:24)
[2018-07-13] MEDS: Cozaar 50 MG PO SCH (10:14)
[2018-07-13] MEDS: Lasix 40 MG PO SCH (10:14)
[2018-07-13] MEDS: Klor Con 10 MEQ PO SCH (10:14)
[2018-07-13] MEDS: LIORESAL 10 MG PO SCH ×3 (10:14→21:30)
[2018-07-13] MEDS: MAG-OX 400 PO SCH ×2 (10:14→21:30)
[2018-07-13] MEDS: Protonix 40MG Tablet PO SCH (10:15)
[2018-07-13] MEDS: Cymbalta 30 MG Capsule PO SCH (10:15)
[2018-07-13] MEDS: Mobic 7.5 MG PO SCH ×2 (10:16→21:31)
[2018-07-13] MEDS: ENOXAPARIN SODIUM SQ SCH (10:19)
[2018-07-13] MEDS: Calcium 500MG W/Vit D Tablet PO SCH (10:19)
[2018-07-13 18:28] LABS: BASOPHIL % 0.2 % (0.0-0.4); Basophil (Absolute #) 0.02 (0-0.4); Eosinophil % 3.2 % (0.00-5.0); Eosinophil (Absolute #) 0.27 (0-0.5); Granulocyte Absolute (ANC) 6.03 (1.4-6.9); Granulocytes % 72.4 % (36.0-66.0); Hematocrit 38.9 % (35-47); Hemoglobin 12.3 gm/dl (12.0-16.0); Lymphocyte (Absolute #) 1.52 (1.0-4.6); Lymphocytes % 18.2 % (24.0-44.0); Mean Cell Volume 91.3 fl (78-100); Mean Corpuscular Hemoglobin 28.9 pg (26-32); Mean Corpuscular Hgb Concent. 31.6 g/dl (32-36); Mean Platelet Volume 10.8 fl (6-9.5); Platelet Count 220 K/mm3 (150-450); Red Blood Count 4.26 M/mm3 (4.1-5.4); Red Cell Distribution Width 14.2 % (11.5-14.0); White Blood Count 8.3 K/mm3 (4.0-10.5)
[2018-07-13 18:40] LABS: ALBUMIN 3.6 g/dL (3.5-5.0); ALKALINE PHOSPHATASE 115 U/L (38-126); ANION GAP 10.6 MEQ/L (5-15); BLOOD UREA NITROGEN 15 mg/dL (7-17); CHLORIDE 104 mmol/L (98-107); Calcium 9.2 mg/dL (8.4-10.2); Carbon Dioxide 28 mmol/L (22-30); Creatinine 1 0.71 mg/dL (0.52-1.04); Glucose 93 mg/dL (74-106); Potassium 4.1 mmol/L (3.5-5.1); SGOT/AST 23 U/L (14-36); SGPT/ALT 17 U/L (0-35); SODIUM 139 mmol/L (137-145)
[2018-07-13 18:49] LABS: A-aADO2 33; ABG HEMOGLOBIN 12.3; ABG POTASSIUM 4.3 (3.5-5.1); ARTERIAL BLD GAS O2 SATURATION 97.1 % (95-100); ARTERIAL BLOOD GAS FIO2 21 %; ARTERIAL BLOOD GAS PCO2 40 mmHg (35-45); ARTERIAL BLOOD GAS PO2 67 mmHg (75-100); ARTERIAL BLOOD GAS pH 7.43 (7.35-7.45); CARBOXYHEMOGLOBIN 2.1 % THgb (0.0-6.9); HCO3- 26.5 (22-28); Lactic Acid 1.5 (0.4-2.0); Methhemoglobin 1.2 % (1.4-1.5); paO2 pAO1 0.67
[2018-07-13 18:50] LABS: ABG SITE LEFT RADIAL; ALLEN TEST OK? YES
[2018-07-13] MEDS ORDERED: Narcan 0.4 MG/ML IV ONE (21:04)
[2018-07-13] MEDS: REQUIP 2MG TAB PO SCH (21:30)
[2018-07-13] MEDS: ECOTRIN 81 MG PO SCH (21:30)
[2018-07-14] MEDS: PATIENT OWN MEDICATION IH SCH ×2 (08:39→19:34)
--- NOTE | 2018-07-14 08:39 | PCM.NOTE ---
Date and Time: 07/14/18833 Subjective Assessment: After receiving narcan last night she did wake up more, was still disoriented, was restless. Earlier this morning she was disoriented for the nurse. For me she woke up with turning on the light; she is oriented to person and place but not time. She is conversant this morning. Does complain of back pain but can't tell me on a scale of1-10 how much it hurts. - Review of Systems Constitutional: No Fever Musculoskeletal: Back Pain Objective Exam General Appearance: no apparent distress, alert, obese Neurologic Exam: cooperative, disoriented, other (dorsiflexion and plantar flexion 5/5. hip flexors 4/5 bilat. unable to elicit patellar reflexes (due to habitus and hx total knee replacements bilat).) Skin Exam: normal color, warm, dry, No rash Respiratory Exam: normal breath sounds, lungs clear, No crackles/rales, No rhonchi, No wheezing Cardiovascular Exam: regular rate/rhythm, normal heart sounds, No murmur Extremity Exam: swelling (trace pretibial edema bilat) OBJECTIVE DATA Vital Signs: Vital Signs - 24 hr Temp Pulse Resp BP Pulse Ox 07/14/18 07:28 98.2 F 86 22 128/80 98 07/14/18 04:25 98.2 F 82 16 141/63 98 07/14/18 00:00 98.3 F 83 20 125/59 96 07/13/18 20:25 96 07/13/18 20:20 98.0 F 78 16 129/60 95 07/13/18 15:58 97.5 F 96 H 20 113/58 94 L 07/13/18 15:56 97.8 F 77 18 120/57 98 07/13/18 12:00 97 F 76 18 126/61 99 07/13/18 09:07 94 L Oxygen-Last 24 hours O2 Percentage 3 Liters = 32% O2 Percentage 3 Liters = 32% Oxygen Flowrate (L/min)-RT 3 Pain Assessment - Last Documented Pain Intensity [Right Hip] 5 Pain Intensity 10 Pain Scale Used 0-10 Pain Scale Intake and Output: Intake & Output 07/11/18 07/12/18 07/13/18 07/14/18 11:59 11:59 11:59 11:59 Intake Total 890 1800 680 380 Output Total 1300 1300 950 400 Balance -410 500 -270 -20 Weight 117.5 kg Lab Results: Lab Results-Last 24 Hours 07/13/18 07/13/18 07/13/18 Range/Units 18:27 18:27 18:43 WBC 8.3 (4.0-10.5) K/mm3 RBC 4.26 (4.1-5.4) M/mm3 Hgb 12.3 (12.0-16.0) gm/dl Hct 38.9 (35-47) % MCV 91.3 (78-100) fl MCH 28.9 (26-32) pg MCHC 31.6 L (32-36) g/dl RDW 14.2 H (11.5-14.0) % Plt Count 220 (150-450) K/mm3 MPV 10.8 H (6-9.5) fl Gran % 72.4 H (36.0-66.0) % Eos # (Auto) 0.27 (0-0.5) Absolute Lymphs (auto) 1.52 (1.0-4.6) Absolute Monos (auto) 0.50 (0.0-1.3) Lymphocytes % 18.2 L (24.0-44.0) % Monocytes % 6.0 (0.0-12.0) % Eosinophils % 3.2 (0.00-5.0) % Basophils % 0.2 (0.0-0.4) % Absolute Granulocytes 6.03 (1.4-6.9) Basophils # 0.02 (0-0.4) Puncture Site LEFT RADIAL pCO2 40 (35-45) mmHg pO2 67 L (75-100) mmHg Base Excess 2.0 (-2.0-2.0) O2 Saturation 94.0 (94-100) g/dF ABG pH 7.43 (7.35-7.45) ABG HCO3 26.5 (22-28) ABG O2 Sat (Measured) 97.1 (95-100) % Santiago Test YES A-a Gradient 33 a/A Ratio 0.67 Hemoglobin 12.3 Carboxyhemoglobin 2.1 (0.0-6.9) % THgb Methemoglobin 1.2 L (1.4-1.5) % Temperature 37.0 C POC O2 Flow Rate 21 % Sodium 139 (137-145) mmol/L Potassium 4.1 4.3 (3.5-5.1) mmol/L Chloride 104 (98-107) mmol/L Carbon Dioxide 28 (22-30) mmol/L Anion Gap 10.6 (5-15) MEQ/L BUN 15 (7-17) mg/dL Creatinine 0.71 (0.52-1.04) mg/dL Estimated GFR > 60.0 ML/MIN Glucose 93 (74-106) mg/dL Lactic Acid 1.5 (0.4-2.0) Calcium 9.2 (8.4-10.2) mg/dL Total Bilirubin 0.60 (0.2-1.3) mg/dL AST 23 (14-36) U/L ALT 17 (0-35) U/L Alkaline Phosphatase 115 (38-126) U/L Serum Total Protein 7.0 (6.3-8.2) g/dL Albumin 3.6 (3.5-5.0) g/dL Radiology Exams: Radiology Procedures Category Date Time Status HEAD WITHOUT CONTRAST [CT] Stat Exams 07/13/18 22:32 Taken Assessment/Plan (1) Spinal stenosis Current Visit: Yes Status: Acute Qualifiers: Spinal region: lumbar Neurogenic claudication status: without neurogenic claudication Qualified Code(s): M48.061 - Spinal stenosis, lumbar region without neurogenic claudication Assessment & Plan: Still having quite a bit of pain. I have stopped the opiates and will try lidoderm patch and toradol today and discuss with Dr. Ashton if he is available. Code(s): M48.00 - SPINAL STENOSIS, SITE UNSPECIFIED (2) Altered mental status Current Visit: Yes Status: Acute Qualifiers: Altered mental status type: disorientation Qualified Code(s): R41.0 - Disorientation, unspecified Assessment & Plan: I think due to opiate reaction; CT head was normal. Labs were fine aside from some poor oxygenation I think just due to respiratory depression. She is more awake this morning. Code(s): R41.82 - ALTERED MENTAL STATUS, UNSPECIFIED
--- NOTE | 2018-07-14 08:52 | XRAY ---
Indication: Confusion. Multiple contiguous axial images obtained through the head without contrast. Comparison: None Age-related global atrophy and mild periventricular degenerative micro-ischemia bilaterally. No acute intracranial hemorrhage, abnormal extra-axial fluid collection, or mass effect. Fourth ventricle is midline without hydrocephalus. Bony calvarium intact. Moderate mucosal thickening of the visualized right maxillary sinus. Remaining visualized paranasal sinuses and mastoid air cells are clear. Impression: Right maxillary sinus disease. Otherwise nonacute senile brain. Comment: Preliminary interpretation was made by [facility]. No discrepancy. CT DI 60.11
[2018-07-14] MEDS: TORAdol 30 mg Injection IV PRN ×3 (09:08→22:14)
[2018-07-14] MEDS: LIORESAL 10 MG PO SCH ×3 (09:17→22:17)
[2018-07-14] MEDS: MAG-OX 400 PO SCH ×2 (09:17→22:17)
[2018-07-14] MEDS: Lasix 40 MG PO SCH (09:17)
[2018-07-14] MEDS: Cozaar 50 MG PO SCH (09:17)
[2018-07-14] MEDS: Calcium 500MG W/Vit D Tablet PO SCH (09:17)
[2018-07-14] MEDS: Protonix 40MG Tablet PO SCH (09:17)
[2018-07-14] MEDS: Klor Con 10 MEQ PO SCH (09:17)
[2018-07-14] MEDS: Cymbalta 30 MG Capsule PO SCH (09:17)
[2018-07-14] MEDS: ENOXAPARIN SODIUM SQ SCH (09:20)
[2018-07-14] MEDS: Lidoderm Patch 5% TOP SCH (09:49)
[2018-07-14] MEDS ORDERED: Lidoderm Patch 5% TOP SCH (10:00)
[2018-07-14] MEDS: ECOTRIN 81 MG PO SCH (22:17)
[2018-07-14] MEDS: REQUIP 2MG TAB PO SCH (22:17)
[2018-07-15] MEDS: Naprosyn 500 MG PO SCH ×3 (02:57→21:06)
[2018-07-15] MEDS: PERCOCET TABLET 5/325MG PO PRN ×2 (03:33→18:29)
[2018-07-15] MEDS: PATIENT OWN MEDICATION IH SCH ×2 (07:12→20:09)
[2018-07-15] MEDS: Lidoderm Patch 5% TOP SCH (10:09)
[2018-07-15] MEDS: ENOXAPARIN SODIUM SQ SCH (10:09)
[2018-07-15] MEDS: Cymbalta 30 MG Capsule PO SCH (10:10)
[2018-07-15] MEDS: Protonix 40MG Tablet PO SCH (10:11)
[2018-07-15] MEDS: Calcium 500MG W/Vit D Tablet PO SCH (10:11)
[2018-07-15] MEDS: MAG-OX 400 PO SCH ×2 (10:12→21:06)
[2018-07-15] MEDS: LIORESAL 10 MG PO SCH ×2 (10:12→16:49)
[2018-07-15] MEDS: Cozaar 50 MG PO SCH (10:13)
[2018-07-15] MEDS: Klor Con 10 MEQ PO SCH (10:16)
[2018-07-15] MEDS: Lasix 40 MG PO SCH (10:16)
[2018-07-15 12:06] LABS: ALBUMIN 3.8 g/dL (3.5-5.0); ALKALINE PHOSPHATASE 136 U/L (38-126); ANION GAP 16.8 MEQ/L (5-15); BLOOD UREA NITROGEN 14 mg/dL (7-17); CHLORIDE 103 mmol/L (98-107); Calcium 9.5 mg/dL (8.4-10.2); Carbon Dioxide 21 mmol/L (22-30); Creatinine 1 0.59 mg/dL (0.52-1.04); Glucose 97 mg/dL (74-106); Potassium 4.2 mmol/L (3.5-5.1); SGOT/AST 33 U/L (14-36); SGPT/ALT 18 U/L (0-35); SODIUM 137 mmol/L (137-145); Total Protein 7.5 g/dL (6.3-8.2)
[2018-07-15 12:34] LABS: BASOPHIL % 0.3 % (0.0-0.4); Basophil (Absolute #) 0.03 (0-0.4); Granulocyte Absolute (ANC) 7.34 (1.4-6.9); Granulocytes % 75.2 % (36.0-66.0); Hemoglobin 13.9 gm/dl (12.0-16.0); Lymphocyte (Absolute #) 1.47 (1.0-4.6); Mean Cell Volume 88.8 fl (78-100); Mean Corpuscular Hemoglobin 28.7 pg (26-32); Mean Corpuscular Hgb Concent. 32.3 g/dl (32-36); Mean Platelet Volume 11.2 fl (6-9.5); Monocyte (Absolute #) 0.73 (0.0-1.3); Monocytes % 7.5 % (0.0-12.0); Platelet Count 244 K/mm3 (150-450); Red Blood Count 4.84 M/mm3 (4.1-5.4); Red Cell Distribution Width 14.1 % (11.5-14.0); White Blood Count 9.8 K/mm3 (4.0-10.5)
--- NOTE | 2018-07-15 13:44 | PCM.NOTE ---
Date and Time: 07/15/18 7007 Subjective Assessment: Patient continues to have pain today. She reports it is sharp and in her right hip area. Her nurses noted that she has pain often when she is turning over in bed but was able to sit up earlier today. They also note that she has pulled at least 2 IV's out and it is hard to get an IV started on her. She currently does not have IV access. Her sister is at the bedside and states that she hasn't eaten or drank much since Tuesday. She usually lives at home with her and has had some back problems but can usually ambulate and take care of herself. Her nurse reports a family member asked about an epidural for her pain from the nurse anesthesist and he was called but stated he does not do epidurals for pain and suggested she Dr. Ashton (outpatient pain management). She denies any history of falls and her sister at the bedside does not know of any falls. - Review of Systems Constitutional: Lethargy Respiratory: No Symptoms Cardiac: No Symptoms Abdominal/Gastrointestinal: No Abdominal Pain Musculoskeletal: Back Pain, Joint Pain, Other (right hip pain) Skin: No Symptoms Objective Exam General Appearance: other (She is often repeats things I have said. She knows she is in a hospital but can't tell me what year it is. She opens her eyes to commands and follows commands with encouragement. She moans in pain frequently.) Skin Exam: normal color Respiratory Exam: normal breath sounds, lungs clear, No crackles/rales, No rhonchi, No wheezing Cardiovascular Exam: regular rate/rhythm, normal heart sounds, No murmur, No friction rub, No gallop Gastrointestinal/Abdomen Exam: soft, normal bowel sounds, No tenderness, No distention, No mass, No guarding Extremity Exam: other (no pain in right hip with log roll; no point tenderness along right lateral hip, she can push down with both feet like she is pushing on the gas pedal and strength is 4/5 in both hands bilat) OBJECTIVE DATA Vital Signs: Vital Signs - 24 hr Temp Pulse Resp BP Pulse Ox 07/15/18 07:34 98.1 F 74 20 133/62 96 07/15/18 07:12 74 20 96 07/15/18 04:00 98.1 F 76 22 133/62 96 07/14/18 23:23 97.8 F 76 20 142/64 92 L 07/14/18 20:00 98.1 F 86 19 124/59 95 07/14/18 19:34 80 20 97 07/14/18 16:19 97.9 F 76 20 136/63 94 L Pain Assessment - Last Documented Pain Intensity [Right Hip] 5 Pain Intensity 10 Pain Scale Used 0-10 Pain Scale Intake and Output: Intake & Output 07/13/18 07/14/18 07/15/18 07/16/18 06:59 06:59 06:59 06:59 Intake Total 780 468 3919 180 Output Total 996 632 0883 Balance -30 100 -570 180 Lab Results: Lab Results-Last 24 Hours 07/15/18 07/15/18 Range/Units 11:49 11:49 WBC 9.8 (4.0-10.5) K/mm3 RBC 4.84 (4.1-5.4) M/mm3 Hgb 13.9 (12.0-16.0) gm/dl Hct 43.0 (35-47) % MCV 88.8 (78-100) fl MCH 28.7 (26-32) pg MCHC 32.3 (32-36) g/dl RDW 14.1 H (11.5-14.0) % Plt Count 244 (150-450) K/mm3 MPV 11.2 H (6-9.5) fl Gran % 75.2 H (36.0-66.0) % Eos # (Auto) 0.20 (0-0.5) Absolute Lymphs (auto) 1.47 (1.0-4.6) Absolute Monos (auto) 0.73 (0.0-1.3) Lymphocytes % 15.0 L (24.0-44.0) % Monocytes % 7.5 (0.0-12.0) % Eosinophils % 2.0 (0.00-5.0) % Basophils % 0.3 (0.0-0.4) % Absolute Granulocytes 7.34 H (1.4-6.9) Basophils # 0.03 (0-0.4) Sodium 137 (137-145) mmol/L Potassium 4.2 (3.5-5.1) mmol/L Chloride 103 (98-107) mmol/L Carbon Dioxide 21 L (22-30) mmol/L Anion Gap 16.8 H (5-15) MEQ/L BUN 14 (7-17) mg/dL Creatinine 0.59 (0.52-1.04) mg/dL Estimated GFR > 60.0 ML/MIN Glucose 97 (74-106) mg/dL Calcium 9.5 (8.4-10.2) mg/dL Total Bilirubin 0.70 (0.2-1.3) mg/dL AST 33 (14-36) U/L ALT 18 (0-35) U/L Alkaline Phosphatase 136 H (38-126) U/L Serum Total Protein 7.5 (6.3-8.2) g/dL Albumin 3.8 (3.5-5.0) g/dL Radiology Exams: Radiology Procedures Category Date Time Status HEAD WITHOUT CONTRAST [CT] Stat Exams 07/13/18 22:32 Completed HIP UNI (2V) INCL PEL IF DONE Urgent Exams 07/15/18 11:33 Taken Assessment/Plan (1) Fracture of iliac crest Current Visit: Yes Status: Acute Qualifiers: Encounter type: initial encounter Laterality: right Assessment & Plan: Right hip X-ray and pelvic X-ray was read by virtual radiologist as right iliac crest fracture (better seen on CT scan abdomen and pelvis dated 07/10/18) although this was not mentioned on this reading. Also right sacroiliac joint with healing acute fractures versus sclerotic chronic stress/insufficiency fractures (please see [facility] dictation for full report). Will continue with naproxen bid scheduled and percocet as needed for pain. She did not tolerate fentanyl patch and needed narcan after this. I am using a lower dose of percocet than what was prescribed earlier. She has been seen by PT. We do not have orthopedic coverage here that I am aware of at this time. Pelvic fractures are usually treated with pain control and early mobilization so will continue to try to do this for Ms. Lambert. Code(s): S32.309A - UNSP FRACTURE OF UNSP ILIUM, INIT ENCNTR FOR CLOSED FRACTURE (2) Delirium due to another medical condition Current Visit: Yes Status: Acute Assessment & Plan: Most likely due to pain and medications. Will continue to try to orient to day time and night time. Head CT was negative yesterday. Code(s): F05 - DELIRIUM DUE TO KNOWN PHYSIOLOGICAL CONDITION (3) Spinal stenosis Current Visit: Yes Status: Acute Qualifiers: Spinal region: lumbar Neurogenic claudication status: without neurogenic claudication Qualified Code(s): M48.061 - Spinal stenosis, lumbar region without neurogenic claudication Assessment & Plan: Shown on CT scan of Lumbar spine. Continue with current medications and trying to control pain although I think the more acute pain may be from the iliac crest fracture. Code(s): M48.00 - SPINAL STENOSIS, SITE UNSPECIFIED (4) Decrease in appetite Current Visit: Yes Status: Acute Assessment & Plan: Labs checked today to make sure electrolytes ok. Will ask for dietary consult. Will hold lasix and potassium chloride at this time. Code(s): R63.0 - ANOREXIA
[2018-07-15] MEDS: ECOTRIN 81 MG PO SCH (21:06)
[2018-07-15] MEDS: REQUIP 2MG TAB PO SCH (21:06)
--- NOTE | 2018-07-15 22:05 | XRAY ---
Indication: Pain. No known injury. Comparison: None AP pelvis and 2 views of the right hip demonstrates healing nondisplaced right iliac crest and right sacroiliac fractures. Both hips intact. Elsewhere osteopenia, lower lumbar degenerative spondylosis, and right gluteal calcified injection granulomas. Comment: Preliminary interpretation was made by [facility]. No discrepancy.
[2018-07-16] MEDS: PERCOCET TABLET 5/325MG PO PRN ×4 (01:18→20:37)
[2018-07-16] MEDS: PATIENT OWN MEDICATION IH SCH ×2 (07:12→19:50)
[2018-07-16] MEDS: ENOXAPARIN SODIUM SQ SCH (10:19)
[2018-07-16] MEDS: Lidoderm Patch 5% TOP SCH (10:20)
[2018-07-16] MEDS: Naprosyn 500 MG PO SCH ×2 (10:21→20:37)
[2018-07-16] MEDS: Cymbalta 30 MG Capsule PO SCH (10:21)
[2018-07-16] MEDS: MAG-OX 400 PO SCH ×2 (10:22→20:37)
[2018-07-16] MEDS: Calcium 500MG W/Vit D Tablet PO SCH (10:22)
[2018-07-16] MEDS: Cozaar 50 MG PO SCH (10:22)
[2018-07-16] MEDS: Protonix 40MG Tablet PO SCH (10:22)
--- NOTE | 2018-07-16 13:16 | PCM.NOTE ---
Date and Time: 07/16/18 1311 Subjective Assessment: Patient is much more alert and awake today. She doesn't remember being confused. Family is asking about appointment with specialist in [place] this and I explained that I did not know about this but Dr. Sandhya adair and she would be back tomorrow. Patient reports continued pain in right lower back /hip area that is worse when she lies on that side and if she tries to sit up. She received a percocet at about 1 AM and her mentation seems good today compared to yesterday. I recommended that she not take baclofen or fentanyl again. I also explained that right now her lasix is held but if she feels like her legs are starting to swell, that this can be started again. I also held her potassium. - Review of Systems Constitutional: No Symptoms Respiratory: No Symptoms Cardiac: No Symptoms Abdominal/Gastrointestinal: No Symptoms Genitourinary Symptoms: No Symptoms Musculoskeletal: Other (right hip and back pain) Objective Exam General Appearance: no apparent distress, alert Neurologic Exam: alert, other (says she is at hospital but thinks she is in [place] (pt reoriented); states the year is 2008 (pt reoriented). Knows her name. Smiling, talkative, not repeating herself today.) Skin Exam: normal color, warm, dry Respiratory Exam: normal breath sounds, lungs clear, No crackles/rales, No rhonchi, No wheezing Cardiovascular Exam: regular rate/rhythm, normal heart sounds, No murmur, No friction rub, No gallop Gastrointestinal/Abdomen Exam: soft, normal bowel sounds, No tenderness, No distention, No mass Extremity Exam: other (no c/c/e; subjective pain to movement on right side) OBJECTIVE DATA Vital Signs: Vital Signs - 24 hr Temp Pulse Resp BP Pulse Ox 07/16/18 11:32 98.4 F 99 H 18 127/64 96 07/16/18 07:18 98.1 F 73 18 114/71 95 07/16/18 07:13 70 16 98 07/16/18 04:00 97.6 F 73 18 126/58 98 07/15/18 23:56 18 07/15/18 20:09 74 17 93 L 07/15/18 19:40 98.1 F 84 18 145/65 96 07/15/18 16:00 98.3 F 77 18 139/63 97 Pain Assessment - Last Documented Pain Intensity [Right Hip] 5 Pain Intensity 3 Pain Scale Used 0-10 Pain Scale Intake and Output: Intake & Output 07/14/18 07/15/18 07/16/18 07/17/18 06:59 06:59 06:59 06:59 Intake Total 500 1230 420 700 Output Total 400 1800 1 Balance 100 -570 419 700 Radiology Exams: Radiology Procedures Category Date Time Status HIP UNI (2V) INCL PEL IF DONE Urgent Exams 07/15/18 11:33 Completed Assessment/Plan (1) Fracture of iliac crest Current Visit: Yes Status: Acute Qualifiers: Encounter type: initial encounter Laterality: right Assessment & Plan: Continue with naproxen bid scheduled and percocet prn. Discussed possibility of swing bed here or at rehab if needed. She will discuss with Dr. Arthur tomorrow. Found on X-ray yesterday. I think this is what is causing her acute pain, but I do not know what caused the fracture. Family at bedside (sister and niece) and questions answered. Code(s): S32.309A - UNSP FRACTURE OF UNSP ILIUM, INIT ENCNTR FOR CLOSED FRACTURE (2) Delirium due to another medical condition Current Visit: Yes Status: Resolved Assessment & Plan: Her mentation is excellent today compared to yesterday. Will avoid fentanyl and baclofen. Code(s): F05 - DELIRIUM DUE TO KNOWN PHYSIOLOGICAL CONDITION (3) Spinal stenosis Current Visit: Yes Status: Acute Qualifiers: Spinal region: lumbar Neurogenic claudication status: without neurogenic claudication Qualified Code(s): M48.061 - Spinal stenosis, lumbar region without neurogenic claudication Assessment & Plan: I am not sure this is causing her acute pain but she could follow up with Neurosurgeon and/or pain management as outpatient. Code(s): M48.00 - SPINAL STENOSIS, SITE UNSPECIFIED (4) Decrease in appetite Current Visit: Yes Status: Acute Assessment & Plan: Patient reports she ate most of her breakfast today! Code(s): R63.0 - ANOREXIA
[2018-07-16] MEDS: REQUIP 2MG TAB PO SCH (20:37)
[2018-07-16] MEDS: Colace 100 MG PO SCH (20:37)
[2018-07-16] MEDS: ECOTRIN 81 MG PO SCH (20:37)
[2018-07-17] MEDS: PERCOCET TABLET 5/325MG PO PRN ×5 (00:43→20:10)
[2018-07-17] MEDS: PATIENT OWN MEDICATION IH SCH ×2 (07:00→20:58)
--- NOTE | 2018-07-17 09:26 | PCM.NOTE ---
Date and Time: 07/17/18919 Subjective Assessment: Pt eating breakfast. Pain in R buttock is 0/10 at rest, 9/10 with movement. - Review of Systems Constitutional: No Fever Musculoskeletal: Back Pain Objective Exam General Appearance: no apparent distress, obese Neurologic Exam: alert, cooperative Skin Exam: normal color, warm, dry, No rash Respiratory Exam: normal breath sounds, lungs clear, No crackles/rales, No rhonchi, No wheezing Cardiovascular Exam: regular rate/rhythm, normal heart sounds, No murmur Back Exam: normal inspection, other (R buttock nttp no lesions) OBJECTIVE DATA Vital Signs: Vital Signs - 24 hr Temp Pulse Resp BP Pulse Ox 07/17/18 07:04 75 16 95 07/17/18 07:00 98.0 F 75 18 120/57 95 07/17/18 03:55 97.7 F 72 18 117/59 95 07/16/18 23:42 98.1 F 74 18 118/58 95 07/16/18 19:50 16 07/16/18 19:47 97.8 F 79 17 109/54 96 07/16/18 16:00 98.1 F 83 18 114/57 96 07/16/18 11:32 98.4 F 99 H 18 127/64 96 Pain Assessment - Last Documented Pain Intensity [Right Hip] 5 Pain Intensity 6 Pain Scale Used [facility] Intake and Output: Intake & Output 07/14/18 07/15/18 07/16/18 07/17/18 11:59 11:59 11:59 11:59 Intake Total 620 7926 820 5314 Output Total 400 1800 1 Balance 220 -534 592 0731 Radiology Exams: Radiology Procedures Category Date Time Status HIP UNI (2V) INCL PEL IF DONE Urgent Exams 07/15/18 11:33 Completed Assessment/Plan (1) Fracture of iliac crest Current Visit: Yes Status: Acute Qualifiers: Encounter type: subsequent encounter Laterality: right Assessment & Plan: I think this is the cause of her acute pain. She still has no idea how this occured. I will discuss with ortho today; would like to put pt in swing bed for PT and pain control and possibly send pt to OP ortho appt. Maybe schedule f /u with pain management outpatient. Code(s): S32.309A - UNSP FRACTURE OF UNSP ILIUM, INIT ENCNTR FOR CLOSED FRACTURE (2) Spinal stenosis Current Visit: Yes Status: Acute Qualifiers: Spinal region: lumbar Neurogenic claudication status: without neurogenic claudication Qualified Code(s): M48.061 - Spinal stenosis, lumbar region without neurogenic claudication Assessment & Plan: OK to cancel neurosurgery appt this week as I think this is a chronic issue. Code(s): M48.00 - SPINAL STENOSIS, SITE UNSPECIFIED (3) Altered mental status Current Visit: Yes Status: Resolved Qualifiers: Altered mental status type: disorientation Qualified Code(s): R41.0 - Disorientation, unspecified Code(s): R41.82 - ALTERED MENTAL STATUS, UNSPECIFIED
[2018-07-17] MEDS: ENOXAPARIN SODIUM SQ SCH (09:54)
[2018-07-17] MEDS: Calcium 500MG W/Vit D Tablet PO SCH (09:59)
[2018-07-17] MEDS: Naprosyn 500 MG PO SCH ×2 (10:00→20:10)
[2018-07-17] MEDS: Colace 100 MG PO SCH ×2 (10:01→20:12)
[2018-07-17] MEDS: Cozaar 50 MG PO SCH (10:01)
[2018-07-17] MEDS: Protonix 40MG Tablet PO SCH (10:01)
[2018-07-17] MEDS: Cymbalta 30 MG Capsule PO SCH (10:03)
[2018-07-17] MEDS: MAG-OX 400 PO SCH ×2 (10:03→20:11)
[2018-07-17] MEDS: Lidoderm Patch 5% TOP SCH (11:33)
[2018-07-17] MEDS: Patanol 1% OPHTHALMIC OP SCH ×2 (12:49→20:12)
[2018-07-17] MEDS: REQUIP 2MG TAB PO SCH (20:11)
[2018-07-17] MEDS: ECOTRIN 81 MG PO SCH (20:11)
[2018-07-18] MEDS: PERCOCET TABLET 5/325MG PO PRN ×6 (00:33→23:47)
[2018-07-18] MEDS: PATIENT OWN MEDICATION IH SCH ×2 (08:10→20:09)
--- NOTE | 2018-07-18 08:57 | PCM.NOTE ---
Date and Time: 07/18/18853 Subjective Assessment: Pt still having pain with any sitting up, can only sit up for "3 seconds." However she is walking with a walker now. She lives at home with her , who apparently is still working. - Review of Systems Constitutional: No Fever Musculoskeletal: Back Pain Objective Exam General Appearance: no apparent distress, alert Neurologic Exam: oriented x 3, cooperative Skin Exam: normal color, warm, dry, No rash Respiratory Exam: normal breath sounds, lungs clear, No crackles/rales, No rhonchi, No wheezing Cardiovascular Exam: regular rate/rhythm, normal heart sounds, No murmur Back Exam: other (R buttock with linear scar, well healed, from liposuction years ago nttp) OBJECTIVE DATA Vital Signs: Vital Signs - 24 hr Temp Pulse Resp BP Pulse Ox 07/18/18 08:12 97 07/18/18 08:10 80 16 98 07/18/18 07:00 98.2 F 75 18 114/62 96 07/18/18 03:00 97.6 F 71 21 117/57 95 07/17/18 23:00 97.6 F 71 21 117/57 95 07/17/18 20:58 75 20 96 07/17/18 19:00 97.6 F 81 20 111/76 96 07/17/18 15:00 97.9 F 83 18 163/71 97 07/17/18 11:00 97.9 F 83 18 163/71 97 Pain Assessment - Last Documented Pain Intensity [Right Hip] 5 Pain Intensity 5 Pain Scale Used 0-10 Pain Scale Intake and Output: Intake & Output 07/15/18 07/16/18 07/17/18 07/18/18 11:59 11:59 11:59 11:59 Intake Total 0147 688 2481 1660 Output Total 1800 1 2 Balance -988 963 1152 1660 Weight 114 kg Assessment/Plan (1) Fracture of iliac crest Current Visit: Yes Status: Acute Qualifiers: Encounter type: subsequent encounter Laterality: right Assessment & Plan: I spoke with Dr. Alford of [facility] orthopedics yesterday - he agrees with conservative management and will see the pt outpatient in 1-2 weeks. Code(s): S32.309A - UNSP FRACTURE OF UNSP ILIUM, INIT ENCNTR FOR CLOSED FRACTURE (2) Spinal stenosis Current Visit: Yes Status: Acute Qualifiers: Spinal region: lumbar Neurogenic claudication status: without neurogenic claudication Qualified Code(s): M48.061 - Spinal stenosis, lumbar region without neurogenic claudication Assessment & Plan: chronic issue - can see Dr. Ashton if pain increases in the future. Code(s): M48.00 - SPINAL STENOSIS, SITE UNSPECIFIED (3) Altered mental status Current Visit: Yes Status: Resolved Qualifiers: Altered mental status type: disorientation Qualified Code(s): R41.0 - Disorientation, unspecified Code(s): R41.82 - ALTERED MENTAL STATUS, UNSPECIFIED
[2018-07-18] MEDS: Colace 100 MG PO SCH ×2 (09:06→22:18)
[2018-07-18] MEDS: Calcium 500MG W/Vit D Tablet PO SCH (09:06)
[2018-07-18] MEDS: Cozaar 50 MG PO SCH (09:07)
[2018-07-18] MEDS: Cymbalta 30 MG Capsule PO SCH (09:08)
[2018-07-18] MEDS: ENOXAPARIN SODIUM SQ SCH (09:08)
[2018-07-18] MEDS: MAG-OX 400 PO SCH ×2 (09:09→22:18)
[2018-07-18] MEDS: Naprosyn 500 MG PO SCH ×2 (09:09→22:18)
[2018-07-18] MEDS: Lidoderm Patch 5% TOP SCH (09:09)
[2018-07-18] MEDS: Patanol 1% OPHTHALMIC OP SCH ×2 (09:10→22:19)
[2018-07-18] MEDS: Protonix 40MG Tablet PO SCH (09:10)
[2018-07-18] MEDS: REQUIP 2MG TAB PO SCH (22:18)
[2018-07-18] MEDS: ECOTRIN 81 MG PO SCH (22:18)
[2018-07-19] MEDS: PERCOCET TABLET 5/325MG PO PRN ×4 (04:00→19:29)
--- NOTE | 2018-07-19 08:41 | PCM.NOTE ---
Date and Time: 07/19/18 08 Subjective Assessment: Pt is toileting by herself, required assistance to get out of bed and to the bathroom yesterday. Still has difficulty sitting. She is AAO x 3 today. Eileen po. Has pain 4/10 when she is up moving around. Objective Exam General Appearance: no apparent distress, alert, obese Neurologic Exam: oriented x 3, cooperative Skin Exam: normal color, warm, dry, No rash Respiratory Exam: normal breath sounds, lungs clear, No crackles/rales, No rhonchi, No wheezing Cardiovascular Exam: regular rate/rhythm, normal heart sounds, No murmur Extremity Exam: No pedal edema, No swelling Back Exam: normal inspection, No rash OBJECTIVE DATA Vital Signs: Vital Signs - 24 hr Temp Pulse Resp BP Pulse Ox 07/19/18 07:35 91 H 18 99 07/19/18 07:00 98.2 F 80 18 131/61 97 07/19/18 03:00 97.5 F 81 18 142/60 97 07/18/18 23:00 97.5 F 92 H 17 140/60 94 L 07/18/18 20:11 84 16 97 07/18/18 19:00 97.5 F 83 18 142/64 94 L 07/18/18 15:00 98.0 F 83 18 160/68 93 L 07/18/18 11:00 98.2 F 89 18 111/57 97 Pain Assessment - Last Documented Pain Intensity [Right Hip] 5 Pain Intensity 2 Pain Scale Used [facility] Intake and Output: Intake & Output 07/16/18 07/17/18 07/18/18 07/19/18 11:59 11:59 11:59 11:59 Intake Total 620 1420 2140 1680 Output Total 1 2 Balance 619 1418 2140 1680 Weight 114 kg Multi-Disciplinary Progress Notes: Multi-Disciplinary Progress Notes 07/18/18 17:37 Physical Therapy Note by Mehreen Lam PT. AMBULATED 100' WITH ROLLATOR WALKER AND SBA OF 1. PT. REQUIRED MINIMAL ASSIST OF 1 WITH SUPINE - SIT TRANSFER AND MODERATE ASSIST WITH SIT-SUPINE TRANSFER D/T INCREASED PAIN/DISCOMFORT. Initialized on 07/18/18 17:37 - END OF NOTE 07/18/18 15:40 Physical Therapy Note by VIRI MARTINEZ V. PT WAS LAYING IN BED UPON PT ARRIVAL. PT REPORTS FEELING OK. PT STATES SHE WOULD LIKE HELP GETTING OUT OF BED TO GO TO THE BATHROOM. PT DID STRUGGLE WITH SOME DISCOMFORT WITH SITTING UP IN BED. PT DID WELL WITH STANDING UP AND WALKING WITH HER ROLLATOR. PT WAS ABLE TO AMB TO THE BATHROOM AND DO THE TOILETING ACTIVITIES INDEPENDENTLY. PT DID WELL AND WAS ABLE TO STAND AND WALK BACK TO THE BED WELL. PT DID RECEIVE A MHP TO THE LB WHILE LAYING SUPINE FOR PAIN. PT TOLERATES WELL AND REPORTS THAT THE HOT PACK HELPS. Initialized on 07/18/18 15:40 - END OF NOTE Assessment/Plan (1) Fracture of iliac crest Current Visit: Yes Status: Acute Qualifiers: Encounter type: subsequent encounter Laterality: right Assessment & Plan: Doing better. Still requiring assistance to get out of bed and to the bathroom. Would like for her to stay in swing bed for more PT if possible. Would like PT recommendations on what equipment pt may need at home for her eventual discharge. Code(s): S32.309A - UNSP FRACTURE OF UNSP ILIUM, INIT ENCNTR FOR CLOSED FRACTURE (2) Spinal stenosis Current Visit: Yes Status: Chronic Qualifiers: Spinal region: lumbar Neurogenic claudication status: without neurogenic claudication Qualified Code(s): M48.061 - Spinal stenosis, lumbar region without neurogenic claudication Code(s): M48.00 - SPINAL STENOSIS, SITE UNSPECIFIED
[2018-07-19] MEDS: Cozaar 50 MG PO SCH (09:46)
[2018-07-19] MEDS: Colace 100 MG PO SCH ×2 (09:46→20:48)
[2018-07-19] MEDS: Calcium 500MG W/Vit D Tablet PO SCH (09:46)
[2018-07-19] MEDS: Cymbalta 30 MG Capsule PO SCH (09:47)
[2018-07-19] MEDS: Lidoderm Patch 5% TOP SCH (09:47)
[2018-07-19] MEDS: ENOXAPARIN SODIUM SQ SCH (09:47)
[2018-07-19] MEDS: Protonix 40MG Tablet PO SCH (09:48)
[2018-07-19] MEDS: Naprosyn 500 MG PO SCH ×2 (09:48→20:48)
[2018-07-19] MEDS: Patanol 1% OPHTHALMIC OP SCH ×2 (09:48→20:50)
[2018-07-19] MEDS: MAG-OX 400 PO SCH ×2 (09:48→20:47)
[2018-07-19] MEDS: PATIENT OWN MEDICATION IH SCH ×2 (16:22→19:15)
[2018-07-19] MEDS: ECOTRIN 81 MG PO SCH (20:48)
[2018-07-19] MEDS: REQUIP 2MG TAB PO SCH (20:48)
[2018-07-20] MEDS: PERCOCET TABLET 5/325MG PO PRN ×4 (01:29→22:40)
[2018-07-20] MEDS: PATIENT OWN MEDICATION IH SCH ×2 (07:50→20:05)
--- NOTE | 2018-07-20 08:51 | PCM.NOTE ---
Date and Time: 07/20/18 0845 Subjective Assessment: Pt having 5/10 pain with walking and still cannot sit on her buttocks. Using walker. Eileen po well. - Review of Systems Constitutional: No Fever Musculoskeletal: Back Pain Objective Exam General Appearance: no apparent distress, alert, obese Neurologic Exam: oriented x 3, cooperative Skin Exam: normal color, warm, dry, No rash Respiratory Exam: normal breath sounds, lungs clear, No crackles/rales, No rhonchi, No wheezing Cardiovascular Exam: regular rate/rhythm, normal heart sounds, No murmur Gastrointestinal/Abdomen Exam: soft, normal bowel sounds, No tenderness, No mass Extremity Exam: swelling (trace pretibial edema bilat) OBJECTIVE DATA Vital Signs: Vital Signs - 24 hr Temp Pulse Resp BP Pulse Ox 07/20/18 07:50 70 19 96 07/20/18 07:00 98 F 74 18 139/64 98 07/20/18 03:00 97.9 F 81 18 119/58 95 07/19/18 23:00 98.0 F 77 19 133/62 94 L 07/19/18 19:15 75 20 96 07/19/18 19:00 98.4 F 76 20 112/55 97 07/19/18 15:00 98.5 F 79 18 116/65 96 07/19/18 11:00 98.5 F 79 18 116/65 96 Pain Assessment - Last Documented Pain Intensity [Right Hip] 5 Pain Intensity 5 Pain Scale Used 0-10 Pain Scale Intake and Output: Intake & Output 07/17/18 07/18/18 07/19/18 07/20/18 11:59 11:59 11:59 11:59 Intake Total 1420 2140 2160 1160 Output Total 2 300 Balance 1418 2140 2160 860 Weight 114 kg 114 kg Multi-Disciplinary Progress Notes: Multi-Disciplinary Progress Notes 07/19/18 17:22 Physical Therapy Note by Cece Fernando PATIENT ABLE TO TOLERATE FUNCTIONAL TRANSFERS WITH MOD ASSIST +1, AND SHORT DISTANCE WALKING (UP TO 100') WITH ROLLATOR WALKER AND MIN ASSIST +1. IT APPEARS AT PRESENT THAT THE PELVIC FXS ARE THE MORE SIGNIFICANT PAIN SOURCE. PATIENT CANNOT TOLERATE SITTING ANY LENGTH OF TIME DUE TO FOCAL PAIN AT THE SACROILIAC JOINT. PAIN TOLERANCE IS SIGNIFICANTLY IMPROVED FROM HER INITIAL STATUS LAST WEEK, BUT IS STILL MODERATELY LIMITING FUNCTIONAL MOBILITY. Initialized on 07/19/18 17:22 - END OF NOTE Assessment/Plan (1) Fracture of iliac crest Current Visit: Yes Status: Acute Qualifiers: Encounter type: subsequent encounter Laterality: right Assessment & Plan: Doing better. Will need rehab. Still unable to sit. Using walker. Await insurance clearance for swing bed, which would be optimal treatment for her. Code(s): S32.309A - UNSP FRACTURE OF UNSP ILIUM, INIT ENCNTR FOR CLOSED FRACTURE (2) Spinal stenosis Current Visit: Yes Status: Chronic Qualifiers: Spinal region: lumbar Neurogenic claudication status: without neurogenic claudication Qualified Code(s): M48.061 - Spinal stenosis, lumbar region without neurogenic claudication Code(s): M48.00 - SPINAL STENOSIS, SITE UNSPECIFIED
[2018-07-20] MEDS: Cymbalta 30 MG Capsule PO SCH (10:01)
[2018-07-20] MEDS: Calcium 500MG W/Vit D Tablet PO SCH (10:01)
[2018-07-20] MEDS: Cozaar 50 MG PO SCH (10:01)
[2018-07-20] MEDS: Naprosyn 500 MG PO SCH ×2 (10:02→21:54)
[2018-07-20] MEDS: Protonix 40MG Tablet PO SCH (10:02)
[2018-07-20] MEDS: Colace 100 MG PO SCH ×2 (10:02→21:54)
[2018-07-20] MEDS: ENOXAPARIN SODIUM SQ SCH (10:03)
[2018-07-20] MEDS: Lidoderm Patch 5% TOP SCH (10:03)
[2018-07-20] MEDS: MAG-OX 400 PO SCH ×2 (10:03→21:54)
[2018-07-20] MEDS: Patanol 1% OPHTHALMIC OP SCH ×2 (10:03→21:54)
[2018-07-20] MEDS ORDERED: PERCOCET TABLET 5/325MG PO ONE (14:50)
[2018-07-20] MEDS: ECOTRIN 81 MG PO SCH (21:54)
[2018-07-20] MEDS: REQUIP 2MG TAB PO SCH (21:54)
[2018-07-21] MEDS: PERCOCET TABLET 5/325MG PO PRN ×3 (05:15→18:38)
[2018-07-21] MEDS: PATIENT OWN MEDICATION IH SCH ×2 (06:00→19:00)
[2018-07-21] MEDS: Cymbalta 30 MG Capsule PO SCH (09:20)
[2018-07-21] MEDS: Calcium 500MG W/Vit D Tablet PO SCH (09:21)
[2018-07-21] MEDS: Colace 100 MG PO SCH ×2 (09:21→21:09)
[2018-07-21] MEDS: Cozaar 50 MG PO SCH (09:21)
[2018-07-21] MEDS: Naprosyn 500 MG PO SCH ×2 (09:23→21:09)
[2018-07-21] MEDS: MAG-OX 400 PO SCH ×2 (09:23→21:09)
[2018-07-21] MEDS: Protonix 40MG Tablet PO SCH (09:23)
[2018-07-21] MEDS: Lidoderm Patch 5% TOP SCH (09:24)
[2018-07-21] MEDS: Patanol 1% OPHTHALMIC OP SCH ×2 (09:24→21:09)
[2018-07-21] MEDS: ENOXAPARIN SODIUM SQ SCH (09:24)
[2018-07-21] MEDS: ECOTRIN 81 MG PO SCH (21:09)
[2018-07-21] MEDS: REQUIP 2MG TAB PO SCH (21:09)
[2018-07-22] MEDS: PERCOCET TABLET 5/325MG PO PRN ×3 (01:54→14:01)
[2018-07-22] MEDS: PATIENT OWN MEDICATION IH SCH ×2 (07:54→19:50)
[2018-07-22] MEDS: Lidoderm Patch 5% TOP SCH (10:11)
[2018-07-22] MEDS: Calcium 500MG W/Vit D Tablet PO SCH (10:12)
[2018-07-22] MEDS: Colace 100 MG PO SCH ×2 (10:12→21:14)
[2018-07-22] MEDS: Cymbalta 30 MG Capsule PO SCH (10:13)
[2018-07-22] MEDS: Cozaar 50 MG PO SCH (10:13)
[2018-07-22] MEDS: MAG-OX 400 PO SCH ×2 (10:15→21:13)
[2018-07-22] MEDS: ENOXAPARIN SODIUM SQ SCH (10:15)
[2018-07-22] MEDS: Patanol 1% OPHTHALMIC OP SCH ×2 (10:16→21:15)
[2018-07-22] MEDS: Naprosyn 500 MG PO SCH ×2 (10:16→21:14)
[2018-07-22] MEDS: Protonix 40MG Tablet PO SCH (10:17)
--- NOTE | 2018-07-22 15:05 | PCM.NOTE ---
Date and Time: 07/22/18 1501 Subjective Assessment: This is a late entry for 07/21/18: Pt with no new complaints today. asa po well. She is up out of bed with a walker; has been working with PT. Has been waiting on swing bed. Does not have any home health set up. - Review of Systems Constitutional: Fever Musculoskeletal: Back Pain Objective Exam General Appearance: no apparent distress, alert, obese Neurologic Exam: oriented x 3, cooperative Skin Exam: normal color, warm, dry, No rash Ears, Nose, Throat Exam: moist mucous membranes Respiratory Exam: normal breath sounds, lungs clear, No crackles/rales, No rhonchi, No wheezing Cardiovascular Exam: regular rate/rhythm, No murmur Gastrointestinal/Abdomen Exam: soft, normal bowel sounds, No tenderness Extremity Exam: normal inspection, No pedal edema, No swelling OBJECTIVE DATA Vital Signs: Vital Signs - 24 hr Temp Pulse Resp BP Pulse Ox 07/22/18 12:00 98.8 F 81 18 106/50 92 L 07/22/18 08:00 98.2 F 71 18 113/54 92 L 07/22/18 07:55 80 18 96 07/22/18 04:10 98.3 F 86 18 126/74 95 07/22/18 00:13 98.4 F 82 22 120/60 97 07/21/18 19:54 97.8 F 88 20 138/60 98 07/21/18 19:00 80 18 95 07/21/18 16:00 97.5 F 86 18 144/65 95 Pain Assessment - Last Documented Pain Intensity [Right Hip] 5 Pain Intensity 8 Pain Scale Used 0-10 Pain Scale Intake and Output: Intake & Output 07/20/18 07/21/18 07/22/18 07/23/18 11:59 11:59 11:59 11:59 Intake Total 1400 1860 1580 240 Output Total 300 Balance 1100 1860 1580 240 Weight 114 kg Multi-Disciplinary Progress Notes: Multi-Disciplinary Progress Notes 07/22/18 12:02 Case Management Note by Isis Green S/W PATIENT AND FAMILY REGARDING DISCHARGE. AT THIS TIME ELISEO HAS CONTACTED [place], [facility] [employer], [facility], [facility] ON 07/21 AND NONE OF THEM ACCEPT PT INSURANCE WHICH IS [employer]. TODAY I HAVE CALLED [facility], [facility] WHICH DO NOT ACCEPT PATIENT INSURANCE. ALSO CALLED [facility] AT [phone] AND S/W [place] WHO ASKED US TO FAX PATIENT INFORMATION TO [phone]. [place], FAXED FACE SHEET, INSURANCE CARD, H&P, REFERRAL, PT REPORT. THE ORDER IS REQUESTING NURSE EVAL, AN AIDE, PT EVAL AND TREAT FOR 4-6 WEEKS, DEPENDING ON THE EVAL... WELL A HOME SAFETY CHECK. THEY WILL CONTACT US WITH THEIR DECISION. THE DAUGHTER ASKED ABOUT AN RX THAT WAS SENT TO [facility] FOR A WALKER. S/W DONTAE AT [facility] [phone] AND [employer] IS OUT OF NETWORK WITH THEM, THE COST OF THE ROLLATOR WALKER THAT WOULD FIT HER IS EITHER $86 OR $125 DEPENDING ON THE STYLE. PATIENT ASKED THAT WE CONTACT [facility], THEY DO NOT CARRY WALKERS HERE IN [place]. AT THIS POINT THE PLAN IS TO KEEP THE PATIENT HERE UNTIL INSURANCE OPENS ON Tuesday. THE PATIENT IS AWARE OF THIS AND RESIGNED TO THE FACT THAT SHE WILL BE HERE THIS WEEKEND. AT THAT TIME CASE MANAGEMENT WILL TALK WITH [employer] AND GET A LIST OF PROVIDERS IN THE AREA AND THEN PROCEED FROM THERE, WELL START AN APPEAL FOR THE WEEKEND. IN THE MEANTIME, THE FAMILY IS CALLING [employer] TO SEE IF THEY CAN CONTRIBUTE TO THE PLAN OF ACTION. WILL CONTINUE TO MONITOR FOR ALL DISCHARGE NEEDS. Initialized on 07/22/18 12:02 - END OF NOTE Assessment/Plan (1) Fracture of iliac crest Current Visit: Yes Status: Acute Qualifiers: Encounter type: subsequent encounter Laterality: right Assessment & Plan: Still awaiting insurance approval on swing bed placement; vs sending pt home with [facility]; however C would have to be arranged before sending pt home. She will see Dr. Alford at [facility] in follow up after her discharge. Code(s): S32.309A - UNSP FRACTURE OF UNSP ILIUM, INIT ENCNTR FOR CLOSED FRACTURE (2) Spinal stenosis Current Visit: Yes Status: Chronic Qualifiers: Spinal region: lumbar Neurogenic claudication status: without neurogenic claudication Qualified Code(s): M48.061 - Spinal stenosis, lumbar region without neurogenic claudication Assessment & Plan: can f/u with neurosurgery or pain management prn after discharge to home. Code(s): M48.00 - SPINAL STENOSIS, SITE UNSPECIFIED
[2018-07-22] MEDS: REQUIP 2MG TAB PO SCH (21:13)
[2018-07-22] MEDS: ECOTRIN 81 MG PO SCH (21:14)
[2018-07-22] MEDS: CHLORASEPTIC SPRAY 180 ML PO PRN (21:14)
[2018-07-23] MEDS: PERCOCET TABLET 5/325MG PO PRN ×5 (00:17→21:46)
[2018-07-23] MEDS: Lidoderm Patch 5% TOP SCH (09:08)
[2018-07-23] MEDS: ENOXAPARIN SODIUM SQ SCH (09:08)
[2018-07-23] MEDS: Colace 100 MG PO SCH ×2 (09:09→21:42)
[2018-07-23] MEDS: Cozaar 50 MG PO SCH (09:09)
[2018-07-23] MEDS: Calcium 500MG W/Vit D Tablet PO SCH (09:09)
[2018-07-23] MEDS: MAG-OX 400 PO SCH ×2 (09:10→21:42)
[2018-07-23] MEDS: Naprosyn 500 MG PO SCH ×2 (09:10→21:42)
[2018-07-23] MEDS: Cymbalta 30 MG Capsule PO SCH (09:10)
[2018-07-23] MEDS: Protonix 40MG Tablet PO SCH (09:11)
[2018-07-23] MEDS: Patanol 1% OPHTHALMIC OP SCH ×2 (09:11→21:43)
[2018-07-23] MEDS: CHLORASEPTIC SPRAY 180 ML PO PRN ×2 (09:12→21:43)
[2018-07-23] MEDS: PATIENT OWN MEDICATION IH SCH (20:59)
[2018-07-23] MEDS: REQUIP 2MG TAB PO SCH (21:42)
[2018-07-23] MEDS: ECOTRIN 81 MG PO SCH (21:42)
[2018-07-24] MEDS: Naprosyn 500 MG PO SCH ×2 (08:46→20:57)
[2018-07-24] MEDS: ENOXAPARIN SODIUM SQ SCH (10:48)
[2018-07-24] MEDS: Lidoderm Patch 5% TOP SCH (10:49)
[2018-07-24] MEDS: Patanol 1% OPHTHALMIC OP SCH ×2 (10:54→20:58)
[2018-07-24] MEDS: Protonix 40MG Tablet PO SCH (10:55)
[2018-07-24] MEDS: Cozaar 50 MG PO SCH (10:55)
[2018-07-24] MEDS: Cymbalta 30 MG Capsule PO SCH (10:58)
[2018-07-24] MEDS: Colace 100 MG PO SCH ×2 (10:59→20:58)
[2018-07-24] MEDS: MAG-OX 400 PO SCH ×2 (10:59→20:57)
[2018-07-24] MEDS: Calcium 500MG W/Vit D Tablet PO SCH (11:00)
[2018-07-24] MEDS: PERCOCET TABLET 5/325MG PO PRN ×3 (11:05→22:16)
[2018-07-24] MEDS: CHLORASEPTIC SPRAY 180 ML PO PRN ×3 (11:07→20:58)
[2018-07-24] MEDS: PATIENT OWN MEDICATION IH SCH ×3 (12:28→20:11)
--- NOTE | 2018-07-24 12:29 | PCM.NOTE ---
Date and Time: 07/24/18 1222 Subjective Assessment: Pt is still doing well getting up out of bed. When she gets back into bed it takes her several minutes of pain before she gets comfortable again. Often has to have family member rub on that R buttock to start feeling better again. Eileen po. C/o ulceration on tongue for at least 3-4 months. Has not been checked anywhere. Unsure last bone density but thinks it was "20 years ago." Per our records it definitely has been at least 3 yrs ago. - Review of Systems Constitutional: No Fever Musculoskeletal: Injury Objective Exam General Appearance: moderate distress (For about 2 min after getting back into bed. Otherwise, NAD.), obese Neurologic Exam: alert, oriented x 3, cooperative Skin Exam: normal color, warm, dry, No rash Ears, Nose, Throat Exam: other (R side of tongue with approx 1cm ulceration) Respiratory Exam: normal breath sounds, lungs clear, No crackles/rales, No rhonchi, No wheezing Cardiovascular Exam: regular rate/rhythm, normal heart sounds, No murmur Gastrointestinal/Abdomen Exam: soft, normal bowel sounds, No tenderness, No distention, No mass, No guarding, No rebound Extremity Exam: normal inspection, swelling, No pedal edema OBJECTIVE DATA Vital Signs: Vital Signs - 24 hr Temp Pulse Resp BP Pulse Ox 07/24/18 08:00 97.7 F 74 17 162/70 97 07/24/18 04:30 97.6 F 73 20 123/58 96 07/24/18 00:25 98.2 F 76 20 112/57 95 07/23/18 21:00 82 18 97 07/23/18 20:15 98.3 F 81 18 104/51 96 07/23/18 16:00 98.3 F 81 18 137/63 95 Pain Assessment - Last Documented Pain Intensity [Right Hip] 5 Pain Intensity 8 Pain Scale Used 0-10 Pain Scale Intake and Output: Intake & Output 07/22/18 07/23/18 07/24/18 07/25/18 11:59 11:59 11:59 11:59 Intake Total 1580 1260 1540 Balance 1580 1260 1540 Multi-Disciplinary Progress Notes: Multi-Disciplinary Progress Notes 07/23/18 12:29 Case Management Note by Rosalee Turner ATTEMPTED TO REACH PT'S INSURANCE, [employer], PROVIDER SERVICES - UNABLE TO OBTAIN ANY INFORMATION REGARDING PROVIDERS IN NETWORK FOR SERVICES THAT PT IS NEEDING PRIOR TO DISCHARGE TO HOME. HAVE EXHAUSTED RESOURCES FOR [facility] SERVICES THAT SERVE OUR COMMUNITY. FAMILY IS STILL UNCOMFORTABLE TAKING PT HOME AND PROVIDING CARE WITHOUT THE SERVICES BEING IN PLACE. WILL KEEP PT HERE UNTIL SERVICES SET UP TO PROVIDE SMOOTH TRANSITION TO HOME. Initialized on 07/23/18 12:29 - END OF NOTE Assessment/Plan (1) Fracture of iliac crest Current Visit: Yes Status: Acute Qualifiers: Encounter type: subsequent encounter Laterality: right Assessment & Plan: She is doing well getting in and out of bed, will need continued therapy however from [facility]. There have been extensive issues with getting a [facility] company that her insurance will cover (see discharge planning note from 07/22/18). Will also need discharge planning to ensure she has all the equipment she needs at home - may benefit from handicap stool cover with handles, walker, etc. If we could get all her equipment together she could go home tomorrow - but if we don' t get home health care set up I'm afraid she may need to stay another day. F/u with ortho after discharge - please call and make appt with Dr. Alford at [facility] (I spoke with him last week about this pt, he agreed to see pt in 1-2 wks). May be having some muscle spasm - however with her hx of sedation on baclofen, I am not treating with muscle relaxers at this time. Will order OP bone density test. Code(s): S32.309A - UNSP FRACTURE OF UNSP ILIUM, INIT ENCNTR FOR CLOSED FRACTURE (2) Spinal stenosis Current Visit: Yes Status: Chronic Qualifiers: Spinal region: lumbar Neurogenic claudication status: without neurogenic claudication Qualified Code(s): M48.061 - Spinal stenosis, lumbar region without neurogenic claudication Assessment & Plan: Advised my office will call the neurosurgeon and set up an appt with the doctor himself at some point so she can discuss. Doesn't seem to be causing her acute problem. Code(s): M48.00 - SPINAL STENOSIS, SITE UNSPECIFIED (3) Tongue ulcer Current Visit: Yes Status: Acute Assessment & Plan: My office will set pt up with ENT after discharge. Code(s): K14.0 - GLOSSITIS
[2018-07-24] MEDS: ECOTRIN 81 MG PO SCH (20:57)
[2018-07-24] MEDS: REQUIP 2MG TAB PO SCH (20:58)
[2018-07-25] MEDS: PATIENT OWN MEDICATION IH SCH ×2 (07:52→11:41)
--- NOTE | 2018-07-25 08:34 | PCM.DS ---
Discharge Summary Date of Admission: 07/15/18 12:11 Admitting Physician: SRI TORRE Consults: Consults on Case 07/15/18 13:56 Nutritional Consult ROUTINE Primary Care Provider: SRI TORRE Allergies Allergies meperidine [From Demerol] Allergy (Verified 07/10/18 13:11) Hospital Summary - Hospital Course Hospital Course: Pt is a 78 yo female pt of mine with PMHx obesity and LE edema who was admitted to the hospital through ER with intractable R lower back pain. On CT there were no findings. She was treated for back pain with IV and po pain meds and PT was consulted. MRI of the lumbar spine was done showing stenosis of the spine and foramina at several levels - outpatient appointment was scheduled for the next week at neurosurgery. Pt had quite a bit of pain, still 8/10, so on was started on fentanyl patch. She became very disoriented and somnolent so the patch was discontinued - she continued to be disoriented until 07/16/18. An XR of her pelvis revealed nondisplaced iliac crest and sacroiliac fractures, healing. She is getting in and out of bed by herself, walking well with walker. Ideally she would have been kept for just rehab stay for the past 1 week or so but her insurance did not approve that - she has been in an inpatient bed instead this entire time due to the insurance issues. She really needs home health PT when she is discharged - at age 78 it's of paramount importance that she keep moving - however her insurance is apparently not accepted by anyone in our region. If discharge planning cannot find a home health agency to work with her today, she will have to be discharged to home with her family only to help her. She has had scattered elevated BP - to 160s systolic this morning x 1 and yesterday morning x 1. She is off of her lasix. Will recommend that she take her losartan at night instead of in the morning. Pt was found to have a 1cm ulcer on the R side of her tongue - has been present x 3-4 mo. My office to schedule ENT follow up outpatient. Pt will f/u with neurosurgery regarding the spinal stenosis - outpatient. Appt to be scheduled by my office. She will be discharged to home on her regular home medications. - Vitals & Intake/Output Vital Signs: Vital Signs Temperature 98.6 F 07/25/18 07:45 Pulse Rate 78 07/25/18 07:54 Respiratory Rate 18 07/25/18 07:54 Blood Pressure 164/67 07/25/18 07:45 O2 Sat by Pulse Oximetry 99 07/25/18 07:54 Oxygen-Last Documented O2 Percentage 3 Liters = 32% Intake & Output: Intake & Output 07/22/18 07/23/18 07/24/18 07/25/18 11:59 11:59 11:59 11:59 Intake Total 1580 1260 1540 840 Balance 1580 1260 1540 840 Weight 113 kg - Lab Result Diagrams: 07/15/18 11:49 07/15/18 11:49 Micro Results-Entire Visit: Microbiology 07/15/18 03:00 Urine Culture - Final Urine, Indwelling Catheter Proteus Mirabilis 07/14/18 09:27 Urine Culture - Final Urine, Indwelling Catheter NO GROWTH - Procedures and Test Procedures and Tests throughout Hospitalization: Therapy Orders & Screens 07/10/18 17:37 PT Eval & Treat (MD Order) ROUTINE Reason for Eval:: R low back pain, intractable Diagnosis: lower back pain. 07/11/18 09:07 Respiratory MDI HS Comment: Diagnosis: lower back pain. 07/11/18 09:19 Respiratory Therapy Assessment DAILY Comment: Diagnosis: lower back pain. 07/12/18 09:00 Respiratory MDI UD Comment: Diagnosis: lower back pain. 07/14/18 17:16 Oxygen Oxymask LPM 3% Comment: Diagnosis: lower back pain. Discharge Exam General Appearance: no apparent distress, alert Neurologic Exam: oriented x 3, cooperative Eye Exam: eyes nml inspection Ears, Nose, Throat Exam: moist mucous membranes Respiratory Exam: normal breath sounds, lungs clear, No crackles/rales, No rhonchi, No wheezing Cardiovascular Exam: regular rate/rhythm, normal heart sounds, No murmur Gastrointestinal/Abdomen Exam: soft, normal bowel sounds, No tenderness, No distention, No mass, No guarding, No rebound Extremity Exam: normal inspection, No pedal edema, No swelling Skin Exam: normal color, warm, dry, No rash Final Diagnosis/Problem List - Final Discharge Diagnosis/Problem (1) Fracture of iliac crest Current Visit: Yes Status: Acute Assessment & Plan: Home, ideally with home health for PT. Pt will need to continue PT. To f/u outpatient with Dr. Alford of [facility] - hospital needs to make this appointment for pt prior to discharge. Code(s): S32.309A - UNSP FRACTURE OF UNSP ILIUM, INIT ENCNTR FOR CLOSED FRACTURE (2) Spinal stenosis Current Visit: Yes Status: Chronic Assessment & Plan: She will f/u outpatient with neurosurgery. Code(s): M48.00 - SPINAL STENOSIS, SITE UNSPECIFIED (3) Tongue ulcer Current Visit: Yes Status: Acute Assessment & Plan: She will f/u outpatient with ENT. Code(s): K14.0 - GLOSSITIS - Discharge Disposition: Home, Self-Care Condition: Good Prescriptions: New Phenol/Sodium Phenolate [Chloraseptic Otis 180 ml] 1 ml PO Q2HPRN PRN bottle PRN Reason: Pain Docusate Sodium 100 mg [Colace 100 MG] 100 mg PO BID capsule Lidocaine HCl 5% Patch [Lidoderm Patch 5%] 2 patch TOP DAILY PRN #30 patch PRN Reason: Pain Olopatadine HCl Ophth [Patanol 1% OPHTHALMIC] 0 ml OP BID bottle Oxycodone/APAP 5 mg/325 mg [Percocet Tablet 5/325Mg] 1 tab PO QID PRN PRN #28 tablet MDD 4 PRN Reason: Pain Continue Ibuprofen 800 mg PO Q8H PRN PRN #20 tablet PRN Reason: Muscle Spasms Furosemide 40 mg [Lasix 40 MG] 40 mg PO DAILY Ropinirole HCl 2 tab PO HS Potassium Chloride [Klor-Con M20] 40 meq PO DAILY Omeprazole 20 mg PO DAILY Magnesium Oxide 400 mg PO BID Losartan Potassium 12.5 mg PO DAILY Glucosamine/Chondro [place]ley A/C/Mn [Glucosamine-Chondroitin Cap] 2 ea PO DAILY Duloxetine HCl 60 mg PO DAILY Calcium Carbonate/Vitamin D3 [Calcium 500 mg-Vit D3 600 Unit] 1 each PO UD Budesonide/Formoterol Fumarate [Symbicort 160-4.5 Mcg Inhaler] 2 ea IH DAILY Aspirin [Holt Aspirin EC] 81 mg PO HS Albuterol Sulfate [Proair Hfa] 8.5 gm IH QID PRN Acetaminophen [Tylenol 8 Hour] 650 mg PO QID Budesonide/Formoterol Fumarate [Symbicort 160-4.5 Mcg Inhaler] 2 puffs IH BID Discontinued Tizanidine HCl 4 mg [Zanaflex 4 MG] 4 mg PO Q8H PRN PRN 5 Days #15 tablet PRN Reason: Muscle Spasms Instructions: Low Back Pain (DC) Follow up with: SRI TORRE [Primary Care Provider] - 07/27/18 11:15 am
[2018-07-25] MEDS: MAG-OX 400 PO SCH (09:04)
[2018-07-25] MEDS: Colace 100 MG PO SCH (09:04)
[2018-07-25] MEDS: Calcium 500MG W/Vit D Tablet PO SCH (09:04)
[2018-07-25] MEDS: Cymbalta 30 MG Capsule PO SCH (09:04)
[2018-07-25] MEDS: Cozaar 50 MG PO SCH (09:05)
[2018-07-25] MEDS: Protonix 40MG Tablet PO SCH (09:05)
[2018-07-25] MEDS: Naprosyn 500 MG PO SCH (09:05)
[2018-07-25] MEDS: ENOXAPARIN SODIUM SQ SCH (09:05)
[2018-07-25] MEDS: PERCOCET TABLET 5/325MG PO PRN ×2 (09:18→14:44)
[2018-07-25] MEDS: Lidoderm Patch 5% TOP SCH (10:23)
[2018-07-25] MEDS: Patanol 1% OPHTHALMIC OP SCH (10:24)
[2018-07-25 14:10] VITALS: BP 112/58; PULSE 86; O2SAT 97
== END 2018-07-25 15:32 | disposition home or self-care (01) | DRG 536 ==
LOC: ED 12:29 → MED SURG 16:19 → OBSVTOIN 07-15 12:11
PROVIDERS: ADMIT Family Medicine; ATTEND Family Medicine
DX: S32.301A Unspecified fracture of right ilium, initial encounter for closed fracture (principal); F05 Delirium due to known physiological condition; M48.061 Spinal stenosis, lumbar region without neurogenic claudication; R41.82 Altered mental status, unspecified; R63.0 Anorexia; K14.0 Glossitis; Z79.899 Other long term (current) drug therapy
CPT/HCPCS: 36000; 36415; 36600; 70450; 72148; 73502; 74177; 80048; 80053; 81001; 82375; 82803; 83605; 85025; 87077; 87086; 87186; 94640; 94760; 96374; 99285; G0378; J1650; J1885; J2270; J2310; A9270-GY

== ENCOUNTER 2022-09-11 11:23 | Emergency (ER) | payer MEDICARE ==
--- NOTE | 2022-09-11 11:28 | ERPHSYRPT ---
- History of Present Illness Time Seen by Provider: 09/11/22 11:28 Historian: patient Exam Limitations: no limitations Physician History: This is an 82-year-old white female patient of nurse practitioner Ermelinda Haynes who presents with upper abdominal pain that radiated around to her right back this morning. Patient took some Tylenol and the pain resolved. Patient has had a cholecystectomy in the past. She denies nausea vomiting or diarrhea. She denies chest pain. She has no known cardiac disease. The pain has completely resolved. However, family members prompted her to be evaluated in the emergency room this morning. Again, patient has no chest pain. Patient denies shortness of breath. Patient denies abdominal pain. She has no cough. She denies fever. Patient does have a history of hypertension and gastroesophageal reflux disease. In the she underwent a gastric bypass procedure. Timing/Duration: today Activities at Onset: none Quality: aching Abdominal Pain Onset Location: RUQ Pain Radiation: back (Right flank) Severity of Pain-Max: mild (To moderate) Severity of Pain-Current: none Modifying Factors: Improves With: analgesics (Pain resolved after taking Tylenol at 6 AM) Associated Symptoms: denies symptoms Previous symptoms: no prior history, no recent treatment Allergies/Adverse Reactions: meperidine [From Demerol] Allergy (Verified 09/11/22 11:34) Home Medications: Acetaminophen [Tylenol 8 Hour] 650 mg PO QID 07/10/18 [History] Albuterol Sulfate [Proair Hfa] 8.5 gm IH QID PRN 07/10/18 [History] Aspirin [Sk[place]ia Aspirin EC] 81 mg PO HS 07/10/18 [History] Budesonide/Formoterol Fumarate [Symbicort 160-4.5 Mcg Inhaler] 2 ea IH DAILY 07/10/18 [History] Budesonide/Formoterol Fumarate [Symbicort 160-4.5 Mcg Inhaler] 2 puffs IH BID 07/10/18 [History] Calcium Carbonate/Vitamin D3 [Calcium 500 mg-Vit D3 600 Unit] 1 each PO UD 07/10/18 [History] Duloxetine HCl 60 mg PO DAILY 07/10/18 [History] Furosemide 40 mg [Lasix 40 MG] 40 mg PO DAILY 07/10/18 [History] Glucosamine/Chondro [place]ley A/C/Mn [Glucosamine-Chondroitin Cap] 2 ea PO DAILY 07/10/18 [History] Losartan Potassium 12.5 mg PO DAILY 07/10/18 [History] Magnesium Oxide 400 mg PO BID 07/10/18 [History] Omeprazole 20 mg PO DAILY 07/10/18 [History] Potassium Chloride [Klor-Con M20] 40 meq PO DAILY 07/10/18 [History] Ropinirole HCl 2 tab PO HS 07/10/18 [History] Hx Tetanus, Diphtheria Vaccination/Date Given: Yes Hx Influenza Vaccination/Date Given: Yes Hx Pneumococcal Vaccination/Date Given: Yes Travel Risk - International Travel Have you traveled outside of the country in past 3 weeks: No - Coronavirus Screening Are you exhibiting any of the following symptoms?: No Close contact with a COVID-19 positive Pt in past 14-21 Days: No - Review of Systems Constitutional: No Symptoms Eyes: No Symptoms Ears, Nose, & Throat: No Symptoms Respiratory: No Symptoms Cardiac: No Symptoms Abdominal/Gastrointestinal: Abdominal Pain (Right upper quadrant abdominal pain with radiation to her right flank/back. Pain completely resolved prior to arrival to the emergency department), No Nausea, No Vomiting, No Diarrhea, No Constipation, No Appetite Changes Genitourinary Symptoms: No Symptoms Musculoskeletal: No Symptoms Skin: No Symptoms Neurological: No Symptoms Psychological: No Symptoms Endocrine: No Symptoms Hematologic/Lymphatic: No Symptoms Immunological/Allergic: No Symptoms All Other Systems: Reviewed and Negative - Past Medical History Pertinent Past Medical History: Yes Neurological History: No Pertinent History ENT History: Cataracts, Glaucoma Cardiac History: No Pertinent History Respiratory History: No Pertinent History Endocrine Medical History: No Pertinent History Musculoskeletal History: Arthritis, Osteoporosis GI Medical History: No Pertinent History History: No Pertinent History Psycho-Social History: No Pertinent History Female Reproductive Disorders: No Pertinent History - Past Surgical History Past Surgical History: Yes Neuro Surgical History: No Pertinent History Cardiac: No Pertinent History Gastrointestinal: Other Genitourinary: No Pertinent History Musculoskeletal: Orthopedic Surgery Female Surgical History: No Pertinent History Other Surgical History: stomach stapling in 80s, bilat knee replacements - Social History Smoking Status: Former smoker Exposure to second hand smoke: Yes Drug Use: none Patient Lives Alone: No - Nursing Vital Signs Nursing Vital Signs: Initial Vital Signs Temperature 97.8 F 09/11/22 11:35 Pulse Rate 97 H 09/11/22 11:35 Respiratory Rate 20 09/11/22 11:35 Blood Pressure 137/74 09/11/22 11:35 O2 Sat by Pulse Oximetry 99 09/11/22 11:35 Pain Scale Pain Intensity 0 - Physical Exam General Appearance: no apparent distress, alert Eye Exam: PERRL/EOMI, eyes nml inspection Ears, Nose, Throat Exam: normal ENT inspection, moist mucous membranes Neck Exam: normal inspection, non-tender, supple, full range of motion Respiratory Exam: normal breath sounds, lungs clear, airway intact, No chest tenderness, No respiratory distress Cardiovascular Exam: regular rate/rhythm, normal heart sounds, normal peripheral pulses Gastrointestinal/Abdomen Exam: soft, normal bowel sounds, No tenderness, No guarding Pelvic Exam: not done Rectal Exam: not done Back Exam: normal inspection, normal range of motion, No CVA tenderness Extremity Exam: normal inspection, normal range of motion, pelvis stable Neurologic Exam: alert, oriented x 3, cooperative, 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 However I do not appreciate ST elevation or ST depression.) Ordered Tests: Active Orders 24 hr Category Date Time Status EKG-ER Only STAT Care 09/11/22 11:47 Active IV Insertion STAT Care 09/11/22 11:47 Active ABDOMEN AND PELVIS W/0 CONTRAS [CT] Stat Exams 09/11/22 11:47 Taken AMYLASE Stat Lab 09/11/22 12:00 Completed CBC W DIFF Stat Lab 09/11/22 12:00 Completed CMP Stat Lab 09/11/22 12:00 Completed LIPASE Stat Lab 09/11/22 12:00 Completed TROPONIN Q4H Lab 09/11/22 12:00 Received TROPONIN Q4H Lab 09/11/22 16:00 Ordered TROPONIN Q4H Lab 09/11/22 20:00 Ordered UA W/RFX UR CULTURE Stat Lab 09/11/22 12:00 Completed Lab/Rad Data: Laboratory Result Diagrams 09/11/22 12:00 07/15/23 12:00 Laboratory Results 09/11/22 09/11/22 09/11/22 Range/Units 12:00 12:00 12:00 WBC 9.9 (4.0-10.5) x10^3/uL RBC 4.68 (4.1-5.4) x10^6/uL Hgb 13.0 (12.0-16.0) g/dL Hct 41.8 (35-47) % MCV 89.3 (78-100) fL MCH 27.8 (26-32) pg MCHC 31.1 L (32-36) g/dL RDW 15.5 H (11.5-14.0) % Plt Count 164 (150-450) x10^3/uL MPV 11.2 H (7.5-11.0) fL Gran % 94.4 H (36.0-66.0) % Immature Gran % (Auto) 0.4 (0.00-0.4) % Nucleat RBC Rel Count 0.0 (0.00-0.1) % Eos # (Auto) 0.03 (0-0.5) x10^3/uL Immature Gran # (Auto) 0.04 H (0.00-0.03) x10^3u/L Absolute Lymphs (auto) 0.32 L (1.0-4.6) x10^3/uL Absolute Monos (auto) 0.15 (0.0-1.3) x10^3/uL Absolute Nucleated RBC 0.00 (0.00-0.01) x10^3u/L Lymphocytes % 3.2 L (24.0-44.0) % Monocytes % 1.5 (0.0-12.0) % Eosinophils % 0.3 (0.00-5.0) % Basophils % 0.2 (0.0-0.4) % Absolute Granulocytes 9.38 H (1.4-6.9) x10^3/uL Basophils # 0.02 (0-0.4) x10^3/uL Sodium 141 (137-145) mmol/L Potassium 3.6 (3.5-5.1) mmol/L Chloride 106 (98-107) mmol/L Carbon Dioxide 26 (22-30) mmol/L Anion Gap 11.5 (5-15) MEQ/L BUN 13 (7-17) mg/dL Creatinine 0.60 (0.52-1.04) mg/dL Estimated GFR > 60.0 ML/MIN Glucose 110 H (74-106) mg/dL Calcium 8.7 (8.4-10.2) mg/dL Total Bilirubin 2.40 H (0.2-1.3) mg/dL AST 568 H (14-36) U/L ALT 231 H (0-35) U/L Alkaline Phosphatase 278 H (38-126) U/L Serum Total Protein 7.4 (6.3-8.2) g/dL Albumin 3.8 (3.5-5.0) g/dL Amylase 59 (30-110) U/L Lipase 59 (23-300) U/L Urine Color Yellow (Yellow) Urine Appearance Clear (Clear) Urine pH 7.5 (4.6-8.0) Ur Specific Bradley 1.015 (1.005-1.030) Urine Protein Negative (Negative) Urine Glucose (UA) Negative (Negative) mg/dL Urine Ketones Negative (Negative) Urine Blood NHT (Negative) Urine Nitrite Negative (Negative) Urine Bilirubin Negative (Negative) Urine Urobilinogen 1.0 A (0.2) mg/dL Ur Leukocyte Esterase Negative (Negative) U Hyaline Cast (Auto) NONE SEEN (0-2) /LPF Urine Microscopic RBC 3-5 (0-5) /HPF Urine Microscopic WBC 0-2 (0-5) /HPF Ur Epithelial Cells None Seen (None Seen) /HPF Urine Bacteria None Seen (None Seen) /HPF Urine Culture Reflexed NO (NO) - Progress Progress: unchanged Progress Note: 09/11/22 12:46 This patient was convinced to come to the emergency department by her family. Patient wants to leave AGAINST MEDICAL ADVICE. She is aware that the work-up has not been completed and the results have not returned. She is aware there could be an acute, emergent issue. She understands the risks benefits and alternatives to signing out AGAINST MEDICAL ADVICE. She will sign the AMA form Counseled pt/family regarding: need for follow-up Medical Desision Making - Diagnostic Testing Diagnostic test were ordered, analyzed, and reviewed by me: No Radiological Interpretation: Other (Patient is leaving AGAINST MEDICAL ADVICE) - Risk of complications Low Risk: Low risk of morbidity from additional dx testing or treatment - Departure Departure Disposition: AMA Clinical Impression: Abdominal pain Condition: Stable Critical Care Time: No Referrals: HUMPHREY HAYNES NP [Primary Care Provider] - Follow up/PCP as directed Additional Instructions: Take your medication as prescribed. Return to the emergency department if symptoms recur.
[2022-09-11 12:00] VITALS: PULSE 97; O2SAT 99
[2022-09-11 12:17] LABS: Absolute Neutrophil Ct (ANC) 9.38 x10^3/uL (1.4-6.9); BASOPHIL % 0.2 % (0.0-0.4); Basophil (Absolute #) 0.02 x10^3/uL (0-0.4); Eosinophil % 0.3 % (0.00-5.0); Eosinophil (Absolute #) 0.03 x10^3/uL (0-0.5); Hematocrit 41.8 % (35-47); IMMATURE GRAN # 0.04 x10^3u/L (0.00-0.03); IMMATURE GRAN % 0.4 % (0.00-0.4); Lymphocyte (Absolute #) 0.32 x10^3/uL (1.0-4.6); Lymphocytes % 3.2 % (24.0-44.0); Mean Cell Volume 89.3 fL (78-100); Mean Corpuscular Hemoglobin 27.8 pg (26-32); Mean Corpuscular Hgb Concent. 31.1 g/dL (32-36); Mean Platelet Volume 11.2 fL (7.5-11.0); Monocyte (Absolute #) 0.15 x10^3/uL (0.0-1.3); Monocytes % 1.5 % (0.0-12.0); Neutrophil % 94.4 % (36.0-66.0); Platelet Count 164 x10^3/uL (150-450); Red Blood Count 4.68 x10^6/uL (4.1-5.4); Red Cell Distribution Width 15.5 % (11.5-14.0); White Blood Count 9.9 x10^3/uL (4.0-10.5)
[2022-09-11 12:21] VITALS: BP 137/64
[2022-09-11 12:24] LABS: Appearance Clear (Clear); Bacteria None Seen /HPF (None Seen); Bilirubin Negative (Negative); Blood NHT (Negative); Epithelial Cells None Seen /HPF (None Seen); Glucose, Urine Negative (Negative); Hyaline Casts NONE SEEN /LPF (0-2); Ketones Negative (Negative); Leukocyte Esterase Negative (Negative); Nitrite Negative (Negative); Ph 7.5 (4.6-8.0); Protein,Urine Dip Negative (Negative); Specific Gravity 1.015 (1.005-1.030); WBC 0-2 /HPF (0-5)
[2022-09-11 12:28] LABS: ALBUMIN 3.8 g/dL (3.5-5.0); ALKALINE PHOSPHATASE 278 U/L (38-126); AMYLASE 59 U/L (30-110); ANION GAP 11.5 MEQ/L (5-15); BLOOD UREA NITROGEN 13 mg/dL (7-17); CHLORIDE 106 mmol/L (98-107); Calcium 8.7 mg/dL (8.4-10.2); Carbon Dioxide 26 mmol/L (22-30); EST GLOMERULAR FILTRATION RATE > 60.0 ML/MIN; Glucose 110 mg/dL (74-106); LIPASE 59 U/L (23-300); Potassium 3.6 mmol/L (3.5-5.1); SGOT/AST 568 U/L (14-36); SGPT/ALT 231 U/L (0-35); SODIUM 141 mmol/L (137-145); Total Protein 7.4 g/dL (6.3-8.2)
[2022-09-11 12:41] LABS: ADD URINE CULTURE? NO (NO)
--- NOTE | 2022-09-11 13:18 | XRAY ---
CLINICAL HISTORY:B UQ ABD pain COMPARISON:06/20/2020. TECHNIQUE:Contiguous, multislice, nonenhanced CT scan of the abdomen and pelvis was performed in the axial plane with multiplanar reconstructions. ; Total exam DLP-665.02 mGy.cm; CTDI-12.62 mGy FINDINGS: Mildly enlarged liver measuring about 18.4 cm in craniocaudal axis showing homogeneous attenuation with no obvious focal mass lesion within the limitations of non-contrast study. Small calcific densities seen in the right and left lobe of liver representing calcified granulomas. Gallbladder is not visualized, likely surgically removed. Pancreas appear unremarkable. Normal-sized spleen showing calcific density representing calcified granuloma. No adrenal mass. Both kidneys appear normal in size, shows normal contour and attenuation. No calculus, mass or hydronephrosis in either kidney. Metallic densities seen at the gastric fundus representing prior surgical intervention. Imaged bowel structures appear unremarkable. No significant bowel wall thickening no bowel dilatation. An adequately filled urinary bladder, appear free from intraluminal stones, mass.Small rounded calcified rim density structure measuring about 5 mm is seen in the rectovesical pouch. Uterus is not visualized, likely surgically removed. No adnexal mass. Multilevel spondylodegenerative changes in the visualized spine showing scoliosis of lumbar spine with convexity towards left side. Irregular deformity of the right iliac and pubic bone related to prior bony insult.Osteoporotic bones. Visualized sections of lower chest shows no focal mass or consolidation. IMPRESSION: 1. No acute intra-abdominal abnormality. 2. Rest of the findings as detailed above. Electronically Signed by: Jose Hernandez MD. (09/11/2022 12:17:16 [employer])
== END 2022-09-11 14:01 | disposition home or self-care (01) ==
LOC: ED 11:23
DX: R10.10 Upper abdominal pain, unspecified (principal); R94.5 Abnormal results of liver function studies; I10 Essential (primary) hypertension; Z79.899 Other long term (current) drug therapy
CPT/HCPCS: 36415; 74176; 80053; 81001; 82150; 83690; 84484; 85025; 93005; 99283

== ENCOUNTER 2022-09-25 11:46 | Emergency (ER) | payer MEDICARE ==
--- NOTE | 2022-09-25 11:55 | ERPHSYRPT ---
- History of Present Illness Time Seen by Provider: 09/25/22 11:55 Historian: patient Exam Limitations: no limitations Physician History: This is an 82-year-old obese white female patient of nurse aubrie Haynes who presents with recurrent upper mid abdominal pain with no nausea or vomiting significant enough to want to return to the emergency department. Patient was seen in this emergency department by me on 09/11/2022 and what was found during that emergency room work-up was elevated liver function test with a total bilirubin of 2.4, and AST of 568, ALT of 231 and alkaline phosphatase of 273. The CT scan of the abdomen and pelvis did not show any acute/emergent intra- abdominal or intrapelvic findings. Patient has no history of cardiac disease. She has had a cholecystectomy in the past. In the she underwent a gastric bypass procedure. Patient has a history of hypertension, osteoporosis, gastroesophageal reflux disease and arthritis. Patient has seen her primary care provider nurse aubrie Haynes on a couple of occasions since her [facility] room visit on 09/11/2022. She is to undergo further work-up as an outpatient. They have not been scheduled as of yet. Patient denies chest pain. Patient denies shortness of breath. She has no back pain. Review the work-up results and the last emergency department visit on 09/11/2022. I also obtained independent information from the patient's sister. Patient states that her pain completely resolved after that emergency room visit but then the same pain returned just after midnight this morning. Timing/Duration: today Quality: aching Abdominal Pain Onset Location: epigastric, periumbilical Pain Radiation: no radiation Severity of Pain-Max: moderate Severity of Pain-Current: moderate Modifying Factors: Improves With: nothing Associated Symptoms: No chest pain, No diarrhea, No headache, No loss of appetite, No nausea, No vomiting Previous symptoms: same symptoms as today, recently seen, recently treated Allergies/Adverse Reactions: meperidine [From Demerol] Allergy (Verified 09/25/22 11:53) Home Medications: Acetaminophen [Tylenol 8 Hour] 650 mg PO QID 07/10/18 [History] Albuterol Sulfate [Proair Hfa] 8.5 gm IH QID PRN 07/10/18 [History] Aspirin [Dickens Aspirin EC] 81 mg PO HS 07/10/18 [History] Budesonide/Formoterol Fumarate [Symbicort 160-4.5 Mcg Inhaler] 2 ea IH DAILY 07/10/18 [History] Budesonide/Formoterol Fumarate [Symbicort 160-4.5 Mcg Inhaler] 2 puffs IH BID 07/10/18 [History] Calcium Carbonate/Vitamin D3 [Calcium 500 mg-Vit D3 600 Unit] 1 each PO UD 07/10/18 [History] Duloxetine HCl 60 mg PO DAILY 07/10/18 [History] Furosemide 40 mg [Lasix 40 MG] 40 mg PO DAILY 07/10/18 [History] Glucosamine/Chondro Worley A/C/Mn [Glucosamine-Chondroitin Cap] 2 ea PO DAILY 07/10/18 [History] Losartan Potassium 12.5 mg PO DAILY 07/10/18 [History] Magnesium Oxide 400 mg PO BID 07/10/18 [History] Omeprazole 20 mg PO DAILY 07/10/18 [History] Potassium Chloride [Klor-Con M20] 40 meq PO DAILY 07/10/18 [History] Ropinirole HCl 2 tab PO HS 07/10/18 [History] Hx Tetanus, Diphtheria Vaccination/Date Given: Yes Hx Influenza Vaccination/Date Given: Yes Hx Pneumococcal Vaccination/Date Given: Yes Travel Risk - International Travel Have you traveled outside of the country in past 3 weeks: No - Coronavirus Screening Are you exhibiting any of the following symptoms?: No Close contact with a COVID-19 positive Pt in past 14-21 Days: No - Vaccine Status Have you recieved a Covid-19 vaccination: Yes 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 - Vaccination Dates Dates if Unknown: na - Review of Systems Constitutional: No Symptoms Eyes: No Symptoms Ears, Nose, & Throat: No Symptoms Respiratory: No Symptoms Cardiac: No Symptoms Abdominal/Gastrointestinal: Abdominal Pain Genitourinary Symptoms: No Symptoms Musculoskeletal: No Symptoms Skin: No Symptoms Neurological: No Symptoms Psychological: No Symptoms Endocrine: No Symptoms Hematologic/Lymphatic: No Symptoms Immunological/Allergic: No Symptoms All Other Systems: Reviewed and Negative - Past Medical History Pertinent Past Medical History: Yes Neurological History: No Pertinent History ENT History: Cataracts, Glaucoma Cardiac History: No Pertinent History Respiratory History: No Pertinent History Endocrine Medical History: No Pertinent History Musculoskeletal History: Arthritis, Osteoporosis GI Medical History: No Pertinent History History: No Pertinent History Psycho-Social History: No Pertinent History Female Reproductive Disorders: No Pertinent History - Past Surgical History Past Surgical History: Yes Neuro Surgical History: No Pertinent History Cardiac: No Pertinent History Gastrointestinal: Other Genitourinary: No Pertinent History Musculoskeletal: Orthopedic Surgery Female Surgical History: No Pertinent History Other Surgical History: stomach stapling in 80s, bilat knee replacements - Social History Smoking Status: Former smoker Exposure to second hand smoke: Yes Drug Use: none Patient Lives Alone: No - Nursing Vital Signs Nursing Vital Signs: Initial Vital Signs Blood Pressure 126/66 09/25/22 11:54 O2 Sat by Pulse Oximetry 98 09/25/22 11:54 Pain Scale Pain Intensity 0 - Physical Exam General Appearance: no apparent distress, alert, anxiety, obese Eye Exam: PERRL/EOMI, eyes nml inspection Ears, Nose, Throat Exam: normal ENT inspection, moist mucous membranes Neck Exam: normal inspection, non-tender, supple, full range of motion Respiratory Exam: normal breath sounds, lungs clear, airway intact, No chest tenderness, No respiratory distress Cardiovascular Exam: regular rate/rhythm, normal heart sounds, normal peripheral pulses Gastrointestinal/Abdomen Exam: soft, normal bowel sounds, tenderness (Upper abdomen and periumbilical region with mild guarding to palpation), guarding, No mass, No rebound, No bruit Pelvic Exam: not done Rectal Exam: not done Back Exam: normal inspection, normal range of motion, No CVA tenderness, No vertebral tenderness Extremity Exam: normal inspection, normal range of motion, pelvis stable Neurologic Exam: alert, oriented x 3, cooperative, supervisor assembly II-XII nml as tested, normal mood/affect, nml cerebellar function, nml station & gait, sensation nml Skin Exam: normal color, warm, dry Lymphatic Exam: No adenopathy SpO2 Interpretation: normal O2 Delivery: Room Air - Course Nursing assessment & vital signs reviewed: Yes EKG Interpreted by Me: RATE (90), LAFB, NORMAL QRS, Other (Prolonged SD interval. No acute ischemic changes on today's twelve-lead EKG. Not significantly different from the twelve-lead EKG dated 09/11/2022.) Ordered Tests: Active Orders 24 hr Category Date Time Status EKG-ER Only STAT Care 09/25/22 12:17 Active IV Insertion STAT Care 09/25/22 12:16 Active ABDOMEN AND PELVIS W/0 CONTRAS [CT] Stat Exams 09/25/22 12:16 Completed AMYLASE Stat Lab 09/25/22 12:20 Completed CBC W DIFF Stat Lab 09/25/22 12:20 Completed CMP Stat Lab 09/25/22 12:20 Completed CULTURE,URINE Stat Lab 09/25/22 12:39 Received LIPASE Stat Lab 09/25/22 12:20 Completed Lactic Acid Stat Lab 09/25/22 12:16 Completed TROPONIN Q4H Lab 09/25/22 12:20 Completed TROPONIN Q4H Lab 09/25/22 16:30 Ordered TROPONIN Q4H Lab 09/25/22 20:30 Ordered UA W/RFX UR CULTURE Stat Lab 09/25/22 12:39 Completed Medication Summary Discontinued Medications Generic Name Dose Route Start Last Admin Trade Name Freq PRN Reason Stop Dose Admin Hydromorphone HCl 0.5 mg 09/25/22 12:43 09/25/22 12:45 Hydromorphone 1 Mg/1ml Inj IV 09/25/22 12:44 0.5 mg STAT ONE Administration Hydromorphone HCl Confirm 09/25/22 12:44 Hydromorphone 1 Mg/1ml Inj Administered 09/25/22 12:45 Dose 1 mg .ROUTE .STK-MED ONE Ondansetron HCl 4 mg 09/25/22 12:16 09/25/22 12:45 Ondansetron Hcl 4 Mg/2 Ml Vial IV 09/25/22 12:17 4 mg STAT ONE Administration Ondansetron HCl Confirm 09/25/22 12:35 Ondansetron Hcl 4 Mg/2 Ml Vial Administered 09/25/22 12:36 Dose 4 mg .ROUTE .STK-MED ONE Lab/Rad Data: Laboratory Result Diagrams 09/25/22 12:20 09/25/22 12:20 Laboratory Results 09/25/22 09/25/22 09/25/22 Range/Units 12:39 12:20 12:20 WBC (4.0-10.5) x10^3/uL RBC (4.1-5.4) x10^6/uL Hgb (12.0-16.0) g/dL Hct (35-47) % MCV (78-100) fL MCH (26-32) pg MCHC (32-36) g/dL RDW (11.5-14.0) % Plt Count (150-450) x10^3/uL MPV (7.5-11.0) fL Gran % (36.0-66.0) % Immature Gran % (Auto) (0.00-0.4) % Nucleat RBC Rel Count (0.00-0.1) % Eos # (Auto) (0-0.5) x10^3/uL Immature Gran # (Auto) (0.00-0.03) x10^3u/L Absolute Lymphs (auto) (1.0-4.6) x10^3/uL Absolute Monos (auto) (0.0-1.3) x10^3/uL Absolute Nucleated RBC (0.00-0.01) x10^3u/L Lymphocytes % (24.0-44.0) % Monocytes % (0.0-12.0) % Eosinophils % (0.00-5.0) % Basophils % (0.0-0.4) % Absolute Granulocytes (1.4-6.9) x10^3/uL Basophils # (0-0.4) x10^3/uL Sodium 140 (137-145) mmol/L Potassium 3.5 (3.5-5.1) mmol/L Chloride 105 (98-107) mmol/L Carbon Dioxide 25 (22-30) mmol/L Anion Gap 13.5 (5-15) MEQ/L BUN 12 (7-17) mg/dL Creatinine 0.60 (0.52-1.04) mg/dL Estimated GFR > 60.0 ML/MIN Glucose 161 H (74-106) mg/dL Lactic Acid (0.4-2.0) Calcium 8.7 (8.4-10.2) mg/dL Total Bilirubin 4.60 H (0.2-1.3) mg/dL AST 347 H (14-36) U/L ALT 211 H (0-35) U/L Alkaline Phosphatase 703 H (38-126) U/L Troponin I < 0.012 (0.000-0.034) ng/mL Serum Total Protein 7.7 (6.3-8.2) g/dL Albumin 3.7 (3.5-5.0) g/dL Amylase 60 (30-110) U/L Lipase 70 (23-300) U/L Urine Color Dark Yellow A (Yellow) Urine Appearance Cloudy A (Clear) Urine pH 6.5 (4.6-8.0) Ur Specific Ripley 1.020 (1.005-1.030) Urine Protein Trace A (Negative) Urine Glucose (UA) 100 A (Negative) mg/dL Urine Ketones Trace A (Negative) Urine Blood NHT (Negative) Urine Nitrite Negative (Negative) Urine Bilirubin Moderate A (Negative) Urine Urobilinogen 2.0 A (0.2) mg/dL Ur Leukocyte Esterase Trace A (Negative) U Hyaline Cast (Auto) NONE SEEN (0-2) /LPF Urine Microscopic RBC 6-10 A (0-5) /HPF Urine Microscopic WBC 0-2 (0-5) /HPF Ur Epithelial Cells Rare (None Seen) /HPF Urine Bacteria None Seen (None Seen) /HPF Urine Culture Reflexed YES (NO) 09/25/22 09/25/22 Range/Units 12:20 12:16 WBC 12.0 H (4.0-10.5) x10^3/uL RBC 4.79 (4.1-5.4) x10^6/uL Hgb 13.4 (12.0-16.0) g/dL Hct 42.6 (35-47) % MCV 88.9 (78-100) fL MCH 28.0 (26-32) pg MCHC 31.5 L (32-36) g/dL RDW 18.1 H (11.5-14.0) % Plt Count 235 (150-450) x10^3/uL MPV 11.9 H (7.5-11.0) fL Gran % 83.5 H (36.0-66.0) % Immature Gran % (Auto) 0.3 (0.00-0.4) % Nucleat RBC Rel Count 0.0 (0.00-0.1) % Eos # (Auto) 0.04 (0-0.5) x10^3/uL Immature Gran # (Auto) 0.04 H (0.00-0.03) x10^3u/L Absolute Lymphs (auto) 1.18 (1.0-4.6) x10^3/uL Absolute Monos (auto) 0.67 (0.0-1.3) x10^3/uL Absolute Nucleated RBC 0.00 (0.00-0.01) x10^3u/L Lymphocytes % 9.8 L (24.0-44.0) % Monocytes % 5.6 (0.0-12.0) % Eosinophils % 0.3 (0.00-5.0) % Basophils % 0.5 (0.0-0.4) % Absolute Granulocytes 9.99 H (1.4-6.9) x10^3/uL Basophils # 0.06 (0-0.4) x10^3/uL Sodium (137-145) mmol/L Potassium (3.5-5.1) mmol/L Chloride (98-107) mmol/L Carbon Dioxide (22-30) mmol/L Anion Gap (5-15) MEQ/L BUN (7-17) mg/dL Creatinine (0.52-1.04) mg/dL Estimated GFR ML/MIN Glucose (74-106) mg/dL Lactic Acid 1.4 (0.4-2.0) Calcium (8.4-10.2) mg/dL Total Bilirubin (0.2-1.3) mg/dL AST (14-36) U/L ALT (0-35) U/L Alkaline Phosphatase (38-126) U/L Troponin I (0.000-0.034) ng/mL Serum Total Protein (6.3-8.2) g/dL Albumin (3.5-5.0) g/dL Amylase (30-110) U/L Lipase (23-300) U/L Urine Color (Yellow) Urine Appearance (Clear) Urine pH (4.6-8.0) Ur Specific Ripley (1.005-1.030) Urine Protein (Negative) Urine Glucose (UA) (Negative) mg/dL Urine Ketones (Negative) Urine Blood (Negative) Urine Nitrite (Negative) Urine Bilirubin (Negative) Urine Urobilinogen (0.2) mg/dL Ur Leukocyte Esterase (Negative) U Hyaline Cast (Auto) (0-2) /LPF Urine Microscopic RBC (0-5) /HPF Urine Microscopic WBC (0-5) /HPF Ur Epithelial Cells (None Seen) /HPF Urine Bacteria (None Seen) /HPF Urine Culture Reflexed (NO) - Progress Progress: improved, re-examined Progress Note: 09/25/22 14:09 The CAT scan of the abdomen pelvis without contrast was compared to the prior CAT scan that was performed 2 weeks ago. There is a new finding of intrahepatic biliary radicles that are mildly prominent. There is a question of a duodenal diverticulum compressing the common bile duct. There is mild fat stranding in the region of the head of the pancreas and descending duodenum. This patient's medical issue is 1 of moderate complexity. Level complexity and the work-up performed is based on the review of the patient's past medical his tory, review of the patient's medication list, review of the patient's drug allergy list, history of present illness and physical findings on examination. I reviewed the results of the work-up which included placement of intravenous line, infusion of intravenous fluids, CBC, CMP, troponin level, twelve-lead EKG, amylase and lipase level as well as a urinalysis. I do not feel that it is necessary to treat this patient's urine as a urinary tract infection. We will wait till the culture returns. There are some new findings as stated above on the CAT scan of the abdomen pelvis but they are not emergent. Patient states at the time of her discharge from the emergency department that she has no abdominal pain. She continues to have persistently elevated liver function tests. The transaminase levels have actually decreased from 2 weeks ago. However, the total bilirubin increased from 2.4 to 4.6 and her alkaline phosphatase levels increased from 273 to 703. The patient is in need of ev aluation by an/syq 13 nav/c2 operator. I did call the lab to obtain a direct bilirubin and total bilirubin levels. Patient will be discharged home and instructed to follow-up with her primary care provider on 09/27/2022. I let the patient and her sister know that patient should see a an/syq 13 nav/c2 operator sooner rather than later. Counseled pt/family regarding: lab results, diagnosis, need for follow-up, rad results Medical Desision Making - Diagnostic Testing Diagnostic test were ordered, analyzed, and reviewed by me: Yes Radiological Interpretation: Reviewed by me, Teleradiologist Report - Risk of complications Low Risk: Low risk of morbidity from additional dx testing or treatment - Departure Departure Disposition: Home Clinical Impression: Abdominal pain, Elevated liver function tests Condition: Stable Critical Care Time: No Referrals: HUMPHREY HAYNES NP [Primary Care Provider] - Follow up/PCP as directed Additional Instructions: Avoid fatty greasy spicy foods. Avoid alcohol ingestion. Take your medication as prescribed. Follow-up with your primary care provider on the morning of 09/27/2022 for further evaluation management including referral to a gastro enterologist.
[2022-09-25 12:14] VITALS: RESP 18; TEMP 98
[2022-09-25] MEDS ORDERED: Zofran 4 MG/2 ML VIAL IV ONE (12:16)
[2022-09-25] MEDS ORDERED: Zofran 4 MG/2 ML VIAL ONE (12:35)
[2022-09-25 12:40] LABS: Absolute Neutrophil Ct (ANC) 9.99 x10^3/uL (1.4-6.9); BASOPHIL % 0.5 % (0.0-0.4); Basophil (Absolute #) 0.06 x10^3/uL (0-0.4); Eosinophil % 0.3 % (0.00-5.0); Eosinophil (Absolute #) 0.04 x10^3/uL (0-0.5); Hematocrit 42.6 % (35-47); Hemoglobin 13.4 g/dL (12.0-16.0); IMMATURE GRAN # 0.04 x10^3u/L (0.00-0.03); IMMATURE GRAN % 0.3 % (0.00-0.4); Lymphocyte (Absolute #) 1.18 x10^3/uL (1.0-4.6); Lymphocytes % 9.8 % (24.0-44.0); Mean Cell Volume 88.9 fL (78-100); Mean Corpuscular Hgb Concent. 31.5 g/dL (32-36); Mean Platelet Volume 11.9 fL (7.5-11.0); Monocyte (Absolute #) 0.67 x10^3/uL (0.0-1.3); Monocytes % 5.6 % (0.0-12.0); Neutrophil % 83.5 % (36.0-66.0); Platelet Count 235 x10^3/uL (150-450); Red Blood Count 4.79 x10^6/uL (4.1-5.4); Red Cell Distribution Width 18.1 % (11.5-14.0)
[2022-09-25] MEDS ORDERED: Hydromorphone 1 mg/ml Injection IV ONE (12:43)
[2022-09-25] MEDS ORDERED: Hydromorphone 1 mg/ml Injection ONE (12:44)
[2022-09-25 12:47] LABS: ALBUMIN 3.7 g/dL (3.5-5.0); ALKALINE PHOSPHATASE 703 U/L (38-126); AMYLASE 60 U/L (30-110); ANION GAP 13.5 MEQ/L (5-15); BLOOD UREA NITROGEN 12 mg/dL (7-17); CHLORIDE 105 mmol/L (98-107); Calcium 8.7 mg/dL (8.4-10.2); Carbon Dioxide 25 mmol/L (22-30); EST GLOMERULAR FILTRATION RATE > 60.0 ML/MIN; Glucose 161 mg/dL (74-106); LIPASE 70 U/L (23-300); Potassium 3.5 mmol/L (3.5-5.1); SGOT/AST 347 U/L (14-36); SGPT/ALT 211 U/L (0-35); SODIUM 140 mmol/L (137-145); Total Protein 7.7 g/dL (6.3-8.2)
[2022-09-25 12:47] LABS: Appearance Cloudy (Clear); Bacteria None Seen /HPF (None Seen); Bilirubin Moderate (Negative); Blood NHT (Negative); Epithelial Cells Rare /HPF (None Seen); Glucose, Urine 100 mg/dL (Negative); Hyaline Casts NONE SEEN /LPF (0-2); Ketones Trace (Negative); Leukocyte Esterase Trace (Negative); Nitrite Negative (Negative); Ph 6.5 (4.6-8.0); Protein,Urine Dip Trace (Negative); WBC 0-2 /HPF (0-5)
[2022-09-25 12:48] LABS: ADD URINE CULTURE? YES (NO)
[2022-09-25 13:04] VITALS: BP 125/77; PULSE 80; O2SAT 95
--- NOTE | 2022-09-25 13:56 | XRAY ---
CLINICAL HISTORY:Epigastric/periumbilical pain COMPARISON:Prior CT dated 09/11/2022. TECHNIQUE:Contiguous, multislice, nonenhanced CT scan of the abdomen and pelvis was performed in the axial plane with multiplanar reconstructions. FINDINGS: Intrahepatic biliary radicles are mildly prominent. CBD is also prominent throughout its length. 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 There is mild fat stranding noted in the region of the pancreatic head and descending duodenum. Mildly enlarged liver measuring about 18.4 cm in craniocaudal axis showing homogeneous attenuation with no obvious focal mass lesion within the limitations of non-contrast study. Small calcific densities seen in the right and left lobe of the liver representing calcified granulomas. Gallbladder is not visualized, likely surgically removed. Pancreas appears unremarkable. Normal-sized spleen showing calcific density representing calcified granuloma. No adrenal mass. Both kidneys appear normal in size, and show normal contour and attenuation. No calculus, mass or hydronephrosis in either kidney. Metallic densities seen at the gastric fundus with air-fluid level likely represent prior surgical intervention. Imaged bowel structures appear unremarkable. No significant bowel wall thickening no bowel dilatation. An adequately filled urinary bladder appears free from intraluminal stones, mass.A small rounded calcified rim density structure measuring about 5 mm is seen in the rectovesical pouch. The uterus is not visualized, likely surgically removed. No adnexal mass. Multilevel spondylodegenerative changes in the visualized spine showing scoliosis of lumbar spine with convexity towards left side. Irregular deformity of the right iliac and pubic bone related to prior bony insult.Osteoporotic bones. Visualized sections of lower chest show no focal mass or consolidation. IMPRESSION: 1. Intrahepatic biliary radicles are mildly prominent. CBD is also prominent throughout its length. ( New finding on comparison ) 2. 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 3. Mild fat stranding noted in the region of the pancreatic head and descending duodenum - suggested clinical and lab correlation to rule out para duodenal / groove pancreatitis. Electronically Signed by: Jose Hernandez MD. (09/25/2022 12:54:46 ASSISTANT CONTROLLER)
== END 2022-09-25 14:59 | disposition home or self-care (01) ==
LOC: ED 11:46
DX: R10.13 Epigastric pain (principal); R10.33 Periumbilical pain; R94.5 Abnormal results of liver function studies; I10 Essential (primary) hypertension; K21.9 Gastro-esophageal reflux disease without esophagitis; Z79.899 Other long term (current) drug therapy
CPT/HCPCS: 36000; 36415; 74176; 80053; 81001; 82150; 82248; 83605; 83690; 84484; 85025; 87086; 93005; 96374; 96375; 99284; J1170; J2405

== ENCOUNTER 2022-11-01 13:31 | Emergency (ER) | payer MEDICARE ==
[2022-11-01 13:47] VITALS: BP 137/79; PULSE 90; RESP 18; TEMP 97.6; O2SAT 96
[2022-11-01] MEDS ORDERED: Adacel Vial IM ONE ×2 (13:47→13:49)
[2022-11-01] MEDS ORDERED: XYLOCAINE 1% HCL 20 ML MDV IJ ONE ×2 (13:52→14:12)
[2022-11-01] MEDS ORDERED: XYLOCAINE 1% HCL 20 ML MDV ONE ×2 (13:53→14:10)
--- NOTE | 2022-11-01 14:42 | ERPHSYRPT ---
- History of Present Illness Source: patient, other () Exam Limitations: no limitations Patient Subjective Stated Complaint: Laceration Triage Nursing Assessment: Patient brought back to ED per w/c and transferred self to bed. Patient A+O X 3. Patient's skin pink, warm and dry. Patient complains of laceration noted to left lower inner leg below knee. Patient states she was sitting at a table when the wind picked up the umbrella and impelled into her left lower leg. Patient has laceration 4.5 cm X 5cm noted to left lower inner leg below knee. Physician History: 82 yo WF w L pre-tibial laceration after patio umbrella became airborne when a matt of wind dislodged it. Avulsion is 4.5x5cm's. She denies other injuries at this time, and pain is moderate. she will need a Tdap. Occurred: just prior to arrival Quality: constant Severity of Pain-Max: moderate Severity of Pain-Current: moderate Lower Extremities Pain: leg: left Modifying Factors: Improves With: movement Associated Symptoms: none Allergies/Adverse Reactions: meperidine [From Demerol] Allergy (Verified 11/01/22 13:35) Home Medications: Acetaminophen [Tylenol 8 Hour] 650 mg PO QID 07/10/18 [History] Albuterol Sulfate [Proair Hfa] 8.5 gm IH QID PRN 07/10/18 [History] Aspirin [Ida Aspirin EC] 81 mg PO HS 07/10/18 [History] Budesonide/Formoterol Fumarate [Symbicort 160-4.5 Mcg Inhaler] 2 ea IH DAILY 07/10/18 [History] Budesonide/Formoterol Fumarate [Symbicort 160-4.5 Mcg Inhaler] 2 puffs IH BID 07/10/18 [History] Calcium Carbonate/Vitamin D3 [Calcium 500 mg-Vit D3 600 Unit] 1 each PO UD 07/10/18 [History] Duloxetine HCl 60 mg PO DAILY 07/10/18 [History] Furosemide 40 mg [Lasix 40 MG] 40 mg PO DAILY 07/10/18 [History] Glucosamine/Chondro [place]ley A/C/Mn [Glucosamine-Chondroitin Cap] 2 ea PO DAILY 07/10/18 [History] Losartan Potassium 12.5 mg PO DAILY 07/10/18 [History] Magnesium Oxide 400 mg PO BID 07/10/18 [History] Omeprazole 20 mg PO DAILY 07/10/18 [History] Potassium Chloride [Klor-Con M20] 40 meq PO DAILY 07/10/18 [History] Ropinirole HCl 2 tab PO HS 07/10/18 [History] Hx Tetanus, Diphtheria Vaccination/Date Given: Yes Hx Influenza Vaccination/Date Given: Yes Hx Pneumococcal Vaccination/Date Given: Yes Immunizations Up to Date: Yes Travel Risk - International Travel Have you traveled outside of the country in past 3 weeks: No - Coronavirus Screening Are you exhibiting any of the following symptoms?: No Close contact with a COVID-19 positive Pt in past 14-21 Days: No - Vaccine Status Have you recieved a Covid-19 vaccination: Yes [employer]: Unknown - Vaccination Dates Dates if Unknown: na - Review of Systems Constitutional: No Symptoms Eyes: No Symptoms Ears, Nose, & Throat: No Symptoms Respiratory: No Symptoms Cardiac: No Symptoms Abdominal/Gastrointestinal: No Symptoms Genitourinary Symptoms: No Symptoms Neurological: No Symptoms Psychological: No Symptoms Endocrine: No Symptoms Hematologic/Lymphatic: No Symptoms Immunological/Allergic: No Symptoms - Past Medical History Pertinent Past Medical History: Yes Neurological History: No Pertinent History ENT History: Cataracts, Glaucoma Cardiac History: No Pertinent History Respiratory History: No Pertinent History Endocrine Medical History: No Pertinent History Musculoskeletal History: Arthritis, Osteoporosis GI Medical History: No Pertinent History History: No Pertinent History Psycho-Social History: No Pertinent History Female Reproductive Disorders: No Pertinent History - Past Surgical History Past Surgical History: Yes Neuro Surgical History: No Pertinent History Cardiac: No Pertinent History Gastrointestinal: Other Genitourinary: No Pertinent History Musculoskeletal: Orthopedic Surgery Female Surgical History: No Pertinent History Other Surgical History: stomach stapling in 80s, bilat knee replacements - Social History Smoking Status: Former smoker Exposure to second hand smoke: Yes Drug Use: none Patient Lives Alone: No - Nursing Vital Signs Nursing Vital Signs: Initial Vital Signs Temperature 97.6 F 11/01/22 13:35 Pulse Rate 90 11/01/22 13:35 Respiratory Rate 18 11/01/22 13:35 Blood Pressure 137/79 11/01/22 13:35 O2 Sat by Pulse Oximetry 96 11/01/22 13:35 Pain Scale Pain Intensity 4 Mildly hypertensive - Physical Exam General Appearance: no apparent distress Eyes, Ears, Nose, Throat Exam: normal ENT inspection, TMs normal, pharynx normal, moist mucous membranes Neck Exam: normal inspection, non-tender, supple, full range of motion, No Brudzinski, No Kernig's, No meningismus Cardiovascular/Respiratory Exam: normal breath sounds, bradycardia Gastrointestinal/Abdominal Exam: non-tender, soft Back Exam: normal inspection, No vertebral tenderness Hips Exam: bilateral: non-tender, normal inspection, normal range of motion, no evidence of injury Legs Exam: left leg: other (4.5x5cm L pre-tibial avulsion/Good hemostasis/NVI) Knees Exam: bilateral knee: non-tender, normal inspection, normal range of motion, no evidence of injury Ankle Exam: bilateral ankle: non-tender, normal inspection, normal range of motion, no evidence of injury Foot Exam: bilateral foot: non-tender, normal inspection, normal range of mot ion, no evidence of injury Neuro/Tendon Exam: normal sensation, normal motor functions, normal tendon functions, responds to pain Mental Status Exam: alert, oriented x 3, cooperative Skin Exam: normal color, warm, dry SpO2 Interpretation: normal SpO2: 96 O2 Delivery: Room Air Procedures - Laceration/Wound Repair Left Other Wound Location: Left (L pre-tibial area) Wound Length (cm): 5.0 Wound's Depth, Shape: flap (5 x4.5 cm's) Wound Explored: clean Irrigated: Yes Hibiclens Prep: Yes Anesthesia: local, 1% Lidocaine Volume Anesthetic (ccs): 15 Wound Debrided: minimal Suture Size/Type: 3-0 (3.0 Ethilon x11/4.0 Ethilon x3) Number of Sutures: 14 Sterile Dressing Applied?: Yes - Course Nursing assessment & vital signs reviewed: Yes - Radiology Exams Lower Leg X-ray Interpretation: Interpreted by me (No fx) Ordered Tests: Active Orders 24 hr Category Date Time Status LOWER LEG Stat Exams 11/01/22 14:43 Ordered Medication Summary Discontinued Medications Generic Name Dose Route Start Last Admin Trade Name Freq PRN Reason Stop Dose Admin Diphtheria/Tetanus/Acell Pertussis 0.5 ml 11/01/22 13:47 11/01/22 13:51 Tdap --Diph,Pertuss(Acell),Tet Vac/Pf 0.5 Ml Vial IM 11/01/22 13:48 0.5 ml .ONCE ONE Administration Diphtheria/Tetanus/Acell Pertussis Confirm 11/01/22 13:49 Tdap --Diph,Pertuss(Acell),Tet Vac/Pf 0.5 Ml Vial Administered 11/01/22 13:50 Dose 0.5 ml IM .STK-MED ONE Lidocaine HCl 10 ml 11/01/22 13:52 11/01/22 13:54 Lidocaine Hcl 1% 20 Ml Mdv 20 Ml Ml IJ 11/01/22 13:53 10 ml STAT ONE Administration Lidocaine HCl Confirm 11/01/22 13:53 Lidocaine Hcl 1% 20 Ml Mdv 20 Ml Ml Administered 11/01/22 13:54 Dose 10 ml .ROUTE .STK-MED ONE Lidocaine HCl Confirm 11/01/22 14:10 Lidocaine Hcl 1% 20 Ml Mdv 20 Ml Ml Administered 11/01/22 14:11 Dose 10 ml .ROUTE .STK-MED ONE Lidocaine HCl 10 ml 11/01/22 14:12 11/01/22 14:14 Lidocaine Hcl 1% 20 Ml Mdv 20 Ml Ml IJ 11/01/22 14:13 10 ml STAT ONE Administration - Progress Progress: improved Progress Note: 11/01/22 15:49 Nursing note and vital signs reviewed No food or housing insecurities noted Additional history per L pre-tibial laceration cleansed w Hibiclens and irrigated copiously w sterile water/No evidence of FB upon exploration Tdap given Pt refused all pain meds XR read in ER and result shared w pt 11/01/22 15:52 Counseled pt/family regarding: diagnosis, need for follow-up Medical Desision Making - Independent Historian Additional History obtained from: Spouse - Diagnostic Testing Radiological Interpretation: Interpreted by me - Risk of complications The pt has a mod risk of morbidity or mortality based on: Need for prescription drug management - Departure Departure Disposition: Home Clinical Impression: Laceration of left leg Condition: Stable Critical Care Time: No Referrals: HUMPHREY NASH NP [Primary Care Provider] - Follow up/PCP as directed Instructions: Wound Care (DC), Laceration Repair With Stitches (DC) Additional Instructions: Keep laceration dry for 2 days, then ok to gently wash 1-2 times a day with soap/water(Do not scrub) Watch for signs of infection-increasing redness/any pus/temperature greater than 100.5/increasing swelling Start Augmentin twice a day for 10 days Sutures out in 10-14 days Prescriptions: Amox Tr/Potass Clav. 875 mg [Augmentin 875-125 Tablet] 875 mg PO STAT #20 tablet
--- NOTE | 2022-11-01 19:00 | XRAY ---
Indication: Pain following trauma. Comparison: None 2 view left lower leg demonstrates osteopenia, total knee arthroplasty with intact prosthesis, and scattered benign appearing anterior subcutaneous calcifications. No other bony, articular, or soft tissue abnormalities.
== END 2022-11-01 15:47 | disposition home or self-care (01) ==
LOC: ED 13:31
DX: S81.812A Laceration without foreign body, left lower leg, initial encounter (principal); W20.8XXA Other cause of strike by thrown, projected or falling object, initial encounter; Z79.899 Other long term (current) drug therapy; Z23 Encounter for immunization
CPT/HCPCS: 12002; 73590; 90471; 90715; 96372; 99284